=== PATIENT | female | born 1965 | race Two or more races ===

== ENCOUNTER 2024-04-20 03:04 | Emergency (ER) | payer MEDICAID, OTHER ==
[~2024-04-20] VITALS: Ht 157.5 cm; Wt 49.5 kg
[2024-04-20] MEDS: LIDOCAINE 2% TOPICAL JELLY 5 ML URJT TOP ONE (05:41)
[2024-04-20] MEDS: LIDOCAINE HCL 5 % TOP OINT 35 GM TOP ONE (05:41)
[2024-04-20] MEDS: LIDOCAINE HCL 2% TOP JELLY 5ML TOP ONE (05:41)
[2024-04-20 06:00] VITALS: BP 141/75; PULSE 86; RESP 16; O2SAT 98
[2024-04-20] MEDS ORDERED: IBU600T PO (06:06)
[2024-04-20] MEDS: TETANUS-DIPTH-ACEL PERTUSSIS 0.5ML SYR Tdap IM ONE (06:25)
== END 2024-04-20 06:26 | disposition home or self-care (01) ==
LOC: ER 03:04
DX: S01.01XA Laceration without foreign body of scalp, initial encounter (principal); Z79.899 Other long term (current) drug therapy; Y04.8XXA Assault by other bodily force, initial encounter; Y93.89 Activity, other specified; Y92.89 Other specified places as the place of occurrence of the external cause; Y99.8 Other external cause status
CPT/HCPCS: 12001; 12011; 70450; 72125; 90471; 90715

== ENCOUNTER 2024-04-29 13:28 | Emergency (ER) | payer MEDICAID ==
[~2024-04-29] VITALS: Ht 170.2 cm; Wt 55.0 kg
[~2024-04-29 13:28] MED LIST: IBU600T PO
[2024-04-29 13:44] VITALS: BP 121/74; PULSE 80; RESP 18; O2SAT 97
== END 2024-04-29 14:59 | disposition home or self-care (01) ==
LOC: ER 13:28
DX: S01.01XD Laceration without foreign body of scalp, subsequent encounter (principal); X58.XXXD Exposure to other specified factors, subsequent encounter

== ENCOUNTER 2024-08-03 04:13 | Inpatient (IN) | payer MEDICAID ==
[~2024-08-03] VITALS: Ht 152.4 cm; Wt 54.9 kg
[2024-08-03] MEDS: ONDANSETRON HCL 4 MG/2 ML VIAL IV ONE (04:39)
[2024-08-03] MEDS: levETIRAcetam 1000 mg/100ml 100 ML IV ONE (04:39)
[2024-08-03] MEDS: SODIUM CHLORIDE 0.9% 1,000 ML IV ONE (04:39)
[2024-08-03 05:01] LABS: Urine Bacteria None Seen /hpf (None Seen)
[2024-08-03] MEDS: LORazepam 2MG/ML-1ML VIAL IV ONE (05:02)
--- NOTE | 2024-08-03 05:03 | ED.PDOC ---
History of Present Illness HPI Comments 59 y/o F, with a Hx of DM w/metformin use, is BIBA for c/o seizure, today. Per EMS report, patient's spouse called after walking-in on the patient actively seizing at home, this morning. On arrival on scene, EMS staff noted on patient still actively seizing and was administered 5mg of Versed, initially, with no response until she was then given another additional 2.5mg Versed. Following second dose administration, patient commented to vomited afterwards and remained unresponsive in post-ictal stated upon arrival to ED. Patient had an initial blood glucose of 202 and all vitals stable and within rafael limits en route. Her seizure was stated to have last, approximately, 10 minutes in duration. EMS staff also reports on patient's spouse endorsing patient having a Hx of seizures in the past but has no current prescription she takes for it. Patient has no reported incontinence, trauma, or any additional reported symptoms at this time. 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 Chief Complaint: Seizure Time Seen by MD: 04:20 Reviewed Notes: Nurses Notes, Lump Maker Notes, Medications, Allergies Allergies: Coded Allergies: NO KNOWN ALLERGIES (Unverified , 04/20/24) Home Meds Active Scripts Ibuprofen Micronized (MOTRIN TABLET) 600 Mg Tb, 600 MG PO TID PRN, #40 TAB *Black box warning-NSAIDS can increase risk of IL & hypertension, GI irritation, ulceration, bleed, perferation. Do not use post cardiac surgery. Use short duration/lowest effective dose. Prov:REID MEYER MD 04/20/24 Information Source: Emergency Med Personnel Mode of Arrival: EMS Severity: Moderate Timing: Hours Duration: Minutes Prehospital treatment: 12 Lead EKG, Mill Work, Treatment (7.5mg Versed), Other (18G LAC) Review of Systems: REVIEW OF SYSTEMS: No fever, no chills, or fatigue HEENT: No sore throat, no earache, no congestion, no neck pain. Cardiac: No chest pain. No palpitations. Lungs: No shortness of breath, no cough. GI: No nausea, no vomiting, no diarrhea, no constipation, no abdominal pain : No dysuria, frequency, or urgency. No hematuria. Musculoskeletal: No joint pain , no joint swelling, no extremity edema. Skin: No rash, no itching. Neuro: Seizure, no headache, no dizziness, no weakness Vital Signs Vital Signs Date Time Temp Pulse Resp B/P (MAP) Pulse Ox O2 Delivery O2 Flow Rate FiO2 08/03/24 05:03 125 08/03/24 04:25 99.5 12 112/63 (79) 97 Physical Exam General: Nonresponsive. No acute distress. Skin: Skin in warm, dry and intact. Appropriate color for ethnicity. Nailbeds pink with no cyanosis. HEENT: The head is normocephalic and atraumatic. Conjunctivae are clear without exudates or hemorrhage. Sclera is non-icteric. Pupils pinpoint. No signs of nystagmus. Eyelids are normal in appearance without swelling or lesions. Oral mucosa is pink and moist Neck: The neck is supple with normal range of motion. No JVD. Cardiac: Heart rate and rhythm are normal. No murmurs, gallops, or rubs are auscultated. Respiratory: No signs of respiratory distress. Lung sounds are clear in all lobes bilaterally without rales, ronchi, or wheezes. Abdominal: Abdomen is soft, non-tender without distention. Bowel sounds are present and normoactive in all four quadrants. Extremities: Upper and lower extremities are atraumatic in appearance without deformity or edema. Neurological: Nonresponsive. GCS3. Psychiatric: Appropriate mood and affect. Good judgement and insight. No visual or auditory hallucinations. Past Medical History PAST MEDICAL HISTORY: DM Surgical History: Denies all surgeries WAREHOUSE PERSON History: Denies all WAREHOUSE PERSON Hx Family History Family History: Reviewed,noncontributory to illness Social History Smoker: Non-Smoker Alcohol: Denies ETOH Use Drugs: Denies Drug Use Lives In: Home Was a procedure done? Was a procedure done?: No EKG EKG : Pulse Rate (adult): 125 [place]: Normal Cardiac Rhythm: ST Block: None Hypertrophy: None ST: Normal Differential Dx Considerations may include: seizures, pseudoseizures, encephalopathy X-Ray, Labs, Meds, VS Vital Signs Date Time Temp Pulse Resp B/P (MAP) Pulse Ox O2 Delivery O2 Flow Rate FiO2 08/03/24 05:03 125 08/03/24 04:25 99.5 130 12 112/63 (79) 97 08/03/24 04:17 125 Lab Test 08/03/24 05:00 08/03/24 04:54 08/03/24 04:51 Range/Units Blood Gas Specimen Type Arterial Blood Gas Sample Site Left radial Blood Gas Patient Temperature 37.0 Arterial Blood Date Drawn [id number] Arterial Blood pH 7.442 7.350-7.450 Arterial Blood Partial Pressure CO2 31.8 L 32.0-45.0 mmHg Arterial Blood Partial Pressure O2 94.2 83.0-108.0 mmHg Arterial Blood HCO3 21.2 21.0-28.0 mmol/L Arterial Blood Oxygen Saturation 98.0 94.0-98.0 % Arterial Blood Base Excess -1.8 -2.0-3.0 mmol/L Arterial Blood Oxyhemoglobin 96.6 94.0-98.0 % Arterial Blood Carboxyhemoglobin 0.7 0.5-1.5 % Arterial Blood Methemoglobin 0.7 0.0-1.5 % Shelton Test Modified Blood Gas Total Hemoglobin 15.90 12.0-16.0 g/dL Blood Gas Liter Flow 2.00 Blood Gas Modality Nasal cannula FiO2 % 28.0 Urine Color Light-yellow Yellow Urine Clarity Clear Clear Urine pH 6.5 5.0-9.0 Urine Specific [place] 1.012 1.001-1.035 Urine Protein 1+ H Negative Urine Ketones Negative Negative Urine Blood Negative Negative /uL Urine Nitrite Negative Negative Urine Bilirubin Negative Negative Urine Urobilinogen Normal Negative mg/dL Urine Leukocyte Esterase Negative Negative /uL Urine RBC 1 0 - 4 /hpf Urine WBC <1 0 - 5 /hpf Urine Squamous Epithelial Cells Few <5 /hpf Urine Bacteria None seen None Seen /hpf Urine Hyaline Casts Few 0 - 2 /lpf Urine Glucose 2+ H Normal mg/dL Urine Opiates Screen Neg NEGATIVE Urine Fentanyl Screen Neg NEGATIVE Urine Barbiturates Screen Neg NEGATIVE Urine Phencyclidine Screen Neg NEGATIVE Urine Amphetamines Screen Neg NEGATIVE Urine Benzodiazepines Screen Pos NEGATIVE Urine Cocaine Screen Neg NEGATIVE Urine Cannabinoids Screen Neg NEGATIVE White Blood Count 12.7 H 4.4-10.8 10^3/uL Red Blood Count 4.93 4.0-5.20 10^6/uL Hemoglobin 15.4 12.2-16.2 g/dL Hematocrit 44.3 36.0-46.0 % Mean Corpuscular Volume 89.8 80.0-100.0 fL Mean Corpuscular Hemoglobin 31.3 28.0-32.0 pg Mean Corpuscular Hemoglobin Concent 34.8 32.0-36.0 g/dL Red Cell Distribution Width 12.7 11.8-14.3 % Platelet Count 208 140-450 10^3/uL Mean Platelet Volume 7.1 6.9-10.8 fL Neutrophils (%) (Auto) 89.6 H 37.0-80.0 % Lymphocytes (%) (Auto) 5.0 L 10.0-50.0 % Monocytes (%) (Auto) 4.6 0.0-12.0 % Eosinophils (%) (Auto) 0.6 0.0-7.0 % Basophils (%) (Auto) 0.2 0.0-2.0 % Neutrophils # (Auto) 11.3 H 1.6-8.6 10 ^3/uL Lymphocytes # (Auto) 0.6 0.4-5.4 10 ^3/uL Monocytes # (Auto) 0.6 0-1.3 10 ^3/uL Eosinophils # (Auto) 0.1 0-0.8 10 ^3/uL Basophils # (Auto) 0 0-0.2 10 ^3/uL Nucleated Red Blood Cells 0.0 % Sodium Level 139 136-145 mmol/L Potassium Level 3.5 3.5-5.1 mmol/L Chloride Level 104 98-107 mmol/L Carbon Dioxide Level 23 20-31 mmol/L Anion Gap 12 5-15 Blood Urea Nitrogen 14 9-23 mg/dL Creatinine 1.01 0.550-1.02 mg/dL Glomerular Filtration Rate Calc 64 >90 mL/min BUN/Creatinine Ratio 13.9 10.0-20.0 Serum Glucose 281 H 74-106 mg/dL Lactic Acid Level 6.5 *H 0.4-2.0 mmol/L Calcium Level 9.9 8.7-10.4 mg/dL Magnesium Level 1.8 1.6-2.6 mg/dL Total Bilirubin 0.6 0.2-1.0 mg/dL Aspartate Amino Transferase (AST) 27 13-40 U/L Alanine Aminotransferase (ALT) 32 7-40 U/L Alkaline Phosphatase 57 46-116 U/L Creatine Kinase Pending Total Protein 7.3 5.7-8.2 g/dL Albumin 4.5 3.2-4.8 g/dL Plasma/Serum Blood Alcohol < 3.0 <10 mg/dL Current Medications Medications (Trade) Dose Ordered Sig/Twyla Route Start Time Stop Time Status Last Admin Ondansetron HCl (Zofran) 4 mg ONCE ONCE IV 08/03/24 04:30 08/03/24 04:31 DC 08/03/24 04:39 Levetiracetam 100 ml @ 400 mls/hr ONCE ONCE IV 08/03/24 04:30 08/03/24 04:44 DC 08/03/24 04:39 Sodium Chloride 1,000 ml @ 1,000 mls/hr Q1H ONCE IV 08/03/24 04:30 08/03/24 05:29 DC 08/03/24 04:39 Lorazepam (Ativan Inj) 1 mg ONCE ONCE IV 08/03/24 05:00 08/03/24 05:01 DC 08/03/24 05:02 Time of 1ST Reevaluation: 04:50 (Patient is, now, localizing pain and has a gag-reflex; decided not to intubate) Reevaluation 1ST: Improved Patient Education/Counseling: Pt Unresponsive Family Education/Counseling: No Family Present Departure 1 Departure Time of Disposition: 06:00 Impression: Primary Impression: Seizure disorder Additional Impression: Prolonged seizure Disposition: 09 ADMITTED INPATIENT Condition: Stable Comments 59-year-old female status post 10 minute witnessed seizure by her at home. Patient is not on any anti epileptic medications however she apparently has history of repeated seizures. Patient currently sedated . Patient to be admitted for further treatment, evaluation monitoring and Neurology evaluation. Critical Care Note Critical Care Time?: No Stability Stability form required: No Heart Score Heart Score: Heart Score Response (Comments) Value History N/A 0 EKG N/A 0 Age N/A 0 Risk Factors N/A 0 Troponin N/A 0 Total 0 I personally scribed for DIRK LANTIGUA MD ([email or web address]) on 08/03/24 at 05:03. Electronically submitted by Derek Fournier ([email or web address]). DIRK LANTIGUA MD Aug 03, 2024 05:03
[2024-08-03 05:08] LABS: Basophils # (auto) 0 10 ^3/uL (0-0.2); Basophils % (auto) 0.2 % (0.0-2.0); Eosinophils # (auto) 0.1 10 ^3/uL (0-0.8); Eosinophils % (auto) 0.6 % (0.0-7.0); Hematocrit 44.3 % (36.0-46.0); Hemoglobin 15.4 g/dL (12.2-16.2); Lymphocytes # (auto) 0.6 10 ^3/uL (0.4-5.4); Mean Corpuscular Hemoglobin 31.3 pg (28.0-32.0); Mean Corpuscular Hgb Conc. 34.8 g/dL (32.0-36.0); Mean Corpuscular Volume 89.8 fL (80.0-100.0); Monocytes # (auto) 0.6 10 ^3/uL (0-1.3); Monocytes % (auto) 4.6 % (0.0-12.0); Neutrophils # (auto) 11.3 10 ^3/uL (1.6-8.6); Neutrophils % (auto) 89.6 % (37.0-80.0); Platelet Count (auto) 208 10^3/uL (140-450); Red Blood Cells 4.93 10^6/uL (4.0-5.20); Red Cell Distribution Width 12.7 % (11.8-14.3); White Blood Cell 12.7 10^3/uL (4.4-10.8)
[2024-08-03 05:20] LABS: Base Excess -1.8 mmol/L (-2.0-3.0)
[2024-08-03 05:21] LABS: Alanine Aminotransferase 32 U/L (7-40); Albumin 4.5 g/dL (3.2-4.8); Alkaline Phosphatase 57 U/L (46-116); Anion Gap 12 (5-15); Aspartate Aminotransferase 27 U/L (13-40); BUN/Creatinine Ratio 13.9 (10.0-20.0); Blood Urea Nitrogen 14 mg/dL (9-23); Calcium 9.9 mg/dL (8.7-10.4); Carbon Dioxide 23 mmol/L (20-31); Chloride 104 mmol/L (98-107); Magnesium 1.8 mg/dL (1.6-2.6); Potassium 3.5 mmol/L (3.5-5.1); Sodium 139 mmol/L (136-145)
[2024-08-03 05:22] LABS: Bilirubin, Total 0.6 mg/dL (0.2-1.0); Total Protein 7.3 g/dL (5.7-8.2)
[2024-08-03 05:29] LABS: Urine Blood Negative /uL (Negative); Urine Clarity Clear (Clear); Urine Color Light-Yellow (Yellow); Urine Hyaline Cast FEW /lpf (0 - 2); Urine Protein, UAD 1+ (Negative); Urine Specific Gravity 1.012 (1.001-1.035); Urine Squamous Epithelial Cell FEW /hpf (<5); Urine Urobilinogen Normal (Negative); Urine WBC <1 /hpf (0 - 5); Urine pH 6.5 (5.0-9.0)
[2024-08-03 05:30] LABS: Amphetamine Screen, Urine Neg (NEGATIVE); Barbiturate Scree,Urine Neg (NEGATIVE); Benzodiazephine Screen, Urine Pos (NEGATIVE); Cannabinoid Screen, Urine Neg (NEGATIVE); Cocaine Screen, Urine Neg (NEGATIVE); Opiate Scree,Urine Neg (NEGATIVE); Phencyclidine Screen, Urine Neg (NEGATIVE)
[2024-08-03 05:31] LABS: Blood Alcohol < 3.0 mg/dL (<10); Glucose 281 mg/dL (74-106)
[2024-08-03 05:33] LABS: Lactic Acid w/Reflex 6.5 mmol/L (0.4-2.0)
--- NOTE | 2024-08-03 05:33 | DVH ---
CHEST RADIOGRAPH Indication: Seizure Technique: Single frontal view of the chest was obtained Comparison: None FINDINGS: Lines and Tubes: None Lungs: No focal consolidation. Pleura: No effusion. No pneumothorax. Cardiomediastinal contours: Unremarkable Bones: No acute osseous abnormality. IMPRESSION: No acute cardiopulmonary disease.
--- NOTE | 2024-08-03 05:33 | DVH ---
EXAM: CT HEAD WITHOUT CONTRAST INDICATION: Seizure TECHNIQUE: CT of the head without intravenous contrast. Radiation Dose Information: CT Dose: CTDI volume is 50.69 mGy. Dose-length product is 812.69 mGy*cm The dose indicators for CT are the volume Computed Tomography (CT) Dose Index (CTDIvol) and the Dose Length Product (DLP), and are measured in units of mGy and mGy-cm, respectively. These indicators are not patient dose, but values generated from the CT scanner acquisition factors. The report includes radiation exposure data for exposures received during this examination. COMPARISON: CT HEAD WITHOUT CONTRAST on DOS: 04/20/24, CT CERVICAL WITHOUT CONTRAST on DOS: 04/20/24 FINDINGS: There is no evidence of acute intracranial hemorrhage, extra-axial collection, mass effect, midline s hift, herniation or hydrocephalus. The ventricles, sulci and cisterns are age appropriate. Punctate calcification posterior temporal lob e, which could be secondary to prior neurocysticercosis exposure. The crawley-white differentiation is intact. Patchy periventricular and subcortical white matter hypoattenuation is nonspecific but may be related to small vessel ischemic disease. The visualized paranasal sinuses and mastoid air cells are clear. The surrounding soft tissues and osseous structures are unremarkable. IMPRESSION: No acute intracranial abnormality.
--- NOTE | 2024-08-03 05:44 | ECG ---
[facility] Test Date: 2024-08-03 Test Time: 04:17:06 Pat Name: DARIAN FU Department: ED Room: 0222T Gender: F Clinical Sales Consultant: MEHUL : 1965 Requested By: DIRK LANTIGUA Order Number: [id number] Reading MD: Nelson Álvarez Measurements Intervals [place] Rate: 125 P: 37 [place]: 161 QRS: 14 QRSD: 91 T: 87 QT: 308 QTc: 445 Interpretive Statements Sinus tachycardia Low voltage, extremity and precordial leads Consider anterior infarct Nonspecific T abnormalities, lateral leads Baseline wander in lead(s) II,aVR,V1,V2 Electronically Signed On 08-07-2024 15:27:21 PST by Nelson Álvarez Please click the below link to view image of tracing.
[2024-08-03 06:28] VITALS: PULSE 99; RESP 14; O2SAT 98
[2024-08-03 08:00] VITALS: PULSE 83; RESP 19; O2SAT 100
[2024-08-03] MEDS ORDERED: DEXTROSE (50%) 50ML SYRG IV PRN (08:15)
[2024-08-03] MEDS ORDERED: ONDANSETRON HCL 4 MG/2 ML VIAL IV PRN (08:15)
[2024-08-03] MEDS ORDERED: ATOR10TA (08:18)
--- NOTE | 2024-08-03 08:36 | DVHHP2 ---
History of Present Illness Reason for Visit: Seizure History of Present Illness Jeannie Huitron is a 59-year-old female with past medical history of diabetes and seizures who presents to the ED for a seizure today that occurred at 3:00 a.m.. Per patient's son Tavo he reports that his dad was at home with his mother and noticed that she was twitching around 3:00 a.[address] in bed. Patient's son reports that she has not been sick recently and she is pretty active. Patient's son also reports that she has had seizures on a monthly basis and she sees a doctor but unsure if it is a neurologist. Patient's son also states that she takes multiple medications but not sure for what. At bedside patient is arousable but unable to answer questions. Patient was given Versed EN route 7.5 mg total. INCLUSION SPECIALIST: Seizure Endocrine: Diabetes Past Surgical History: Other (Unknown per son) Family History: None Smoke: No ALCOHOL: none Drugs: None Lives: with Family Domestic Violence: Neg Review of Systems Neurological: Seizures Allergies: Coded Allergies: NO KNOWN ALLERGIES (Unverified , 04/20/24) Medications Current Medications Medications Dose Ordered Sig/Twyla Route Start Time Stop Time Status Last Admin Dose Admin Diagnostic Test (Pha) 1 strip Q6HR 08/03/24 12:00 UNV Insulin Human Regular Q6HR SC 08/03/24 12:00 UNV Dextrose 50 ml UD PRN IV 08/03/24 08:15 UNV Sodium Chloride 1,000 ml @ 70 mls/hr [id number] IV 08/03/24 08:15 UNV Ondansetron HCl 4 mg Q4HP PRN IV 08/03/24 08:15 UNV Enoxaparin Sodium 30 mg DAILY SC 08/03/24 10:00 UNV Levetiracetam 100 ml @ 400 mls/hr BID IV 08/03/24 10:00 UNV Exam Vital Signs Vital Signs Date Time Temp Pulse Resp B/P (MAP) Pulse Ox O2 Delivery O2 Flow Rate FiO2 08/03/24 07:00 86 142/83 (102) 100 08/03/24 06:28 14 Nasal Cannula* 4 36 08/03/24 04:40 98.8 98.8 General Appearance: No acute distress HEENT: Atraumatic, Mucous membr. moist/pink Respiratory: Clear to auscultation, Normal air movement Cardiovascular: Regular rate, Normal S1, Normal S2, No murmurs Abdominal: Normal bowel sounds, Soft Extremities: No clubbing, No cyanosis, No edema, Normal pulses, No tenderness/swelling Skin: No significant lesion Neuro: Normal tone, Sensation intact Labs/Xrays Labs Test 08/03/24 05:00 08/03/24 04:54 08/03/24 04:51 Range/Units Blood Gas Specimen Type Arterial Blood Gas Sample Site Left radial Blood Gas Patient Temperature 37.0 Arterial Blood Date Drawn [id number] Arterial Blood pH 7.442 7.350-7.450 Arterial Blood Partial Pressure CO2 31.8 L 32.0-45.0 mmHg Arterial Blood Partial Pressure O2 94.2 83.0-108.0 mmHg Arterial Blood HCO3 21.2 21.0-28.0 mmol/L Arterial Blood Oxygen Saturation 98.0 94.0-98.0 % Arterial Blood Base Excess -1.8 -2.0-3.0 mmol/L Arterial Blood Oxyhemoglobin 96.6 94.0-98.0 % Arterial Blood Carboxyhemoglobin 0.7 0.5-1.5 % Arterial Blood Methemoglobin 0.7 0.0-1.5 % Shelton Test Modified Blood Gas Total Hemoglobin 15.90 12.0-16.0 g/dL Blood Gas Liter Flow 2.00 Blood Gas Modality Nasal cannula FiO2 % 28.0 Urine Color Light-yellow Yellow Urine Clarity Clear Clear Urine pH 6.5 5.0-9.0 Urine Specific [place] 1.012 1.001-1.035 Urine Protein 1+ H Negative Urine Ketones Negative Negative Urine Blood Negative Negative /uL Urine Nitrite Negative Negative Urine Bilirubin Negative Negative Urine Urobilinogen Normal Negative mg/dL Urine Leukocyte Esterase Negative Negative /uL Urine RBC 1 0 - 4 /hpf Urine WBC <1 0 - 5 /hpf Urine Squamous Epithelial Cells Few <5 /hpf Urine Bacteria None seen None Seen /hpf Urine Hyaline Casts Few 0 - 2 /lpf Urine Glucose 2+ H Normal mg/dL Urine Opiates Screen Neg NEGATIVE Urine Fentanyl Screen Neg NEGATIVE Urine Barbiturates Screen Neg NEGATIVE Urine Phencyclidine Screen Neg NEGATIVE Urine Amphetamines Screen Neg NEGATIVE Urine Benzodiazepines Screen Pos NEGATIVE Urine Cocaine Screen Neg NEGATIVE Urine Cannabinoids Screen Neg NEGATIVE White Blood Count 12.7 H 4.4-10.8 10^3/uL Red Blood Count 4.93 4.0-5.20 10^6/uL Hemoglobin 15.4 12.2-16.2 g/dL Hematocrit 44.3 36.0-46.0 % Mean Corpuscular Volume 89.8 80.0-100.0 fL Mean Corpuscular Hemoglobin 31.3 28.0-32.0 pg Mean Corpuscular Hemoglobin Concent 34.8 32.0-36.0 g/dL Red Cell Distribution Width 12.7 11.8-14.3 % Platelet Count 208 140-450 10^3/uL Mean Platelet Volume 7.1 6.9-10.8 fL Neutrophils (%) (Auto) 89.6 H 37.0-80.0 % Lymphocytes (%) (Auto) 5.0 L 10.0-50.0 % Monocytes (%) (Auto) 4.6 0.0-12.0 % Eosinophils (%) (Auto) 0.6 0.0-7.0 % Basophils (%) (Auto) 0.2 0.0-2.0 % Neutrophils # (Auto) 11.3 H 1.6-8.6 10 ^3/uL Lymphocytes # (Auto) 0.6 0.4-5.4 10 ^3/uL Monocytes # (Auto) 0.6 0-1.3 10 ^3/uL Eosinophils # (Auto) 0.1 0-0.8 10 ^3/uL Basophils # (Auto) 0 0-0.2 10 ^3/uL Nucleated Red Blood Cells 0.0 % Sodium Level 139 136-145 mmol/L Potassium Level 3.5 3.5-5.1 mmol/L Chloride Level 104 98-107 mmol/L Carbon Dioxide Level 23 20-31 mmol/L Anion Gap 12 5-15 Blood Urea Nitrogen 14 9-23 mg/dL Creatinine 1.01 0.550-1.02 mg/dL Glomerular Filtration Rate Calc 64 >90 mL/min BUN/Creatinine Ratio 13.9 10.0-20.0 Serum Glucose 281 H 74-106 mg/dL Lactic Acid Level 6.5 *H 0.4-2.0 mmol/L Calcium Level 9.9 8.7-10.4 mg/dL Magnesium Level 1.8 1.6-2.6 mg/dL Total Bilirubin 0.6 0.2-1.0 mg/dL Aspartate Amino Transferase (AST) 27 13-40 U/L Alanine Aminotransferase (ALT) 32 7-40 U/L Alkaline Phosphatase 57 46-116 U/L Creatine Kinase 96 34-145 U/L Total Protein 7.3 5.7-8.2 g/dL Albumin 4.5 3.2-4.8 g/dL Plasma/Serum Blood Alcohol < 3.0 <10 mg/dL EXAM: CT HEAD WITHOUT CONTRAST INDICATION: Seizure TECHNIQUE: CT of the head without intravenous contrast. Radiation Dose Information: CT Dose: CTDI volume is 50.69 mGy. Dose-length product is 812.69 mGy*cm The dose indicators for CT are the volume Computed Tomography (CT) Dose Index (CTDIvol) and the Dose Length Product (DLP), and are measured in units of mGy and mGy-cm, respectively. These indicators are not patient dose, but values generated from the CT scanner acquisition factors. The report includes radiation exposure data for exposures received during this examination. COMPARISON: CT HEAD WITHOUT CONTRAST on DOS: 04/20/24, CT CERVICAL WITHOUT CON TRAST on DOS: 04/20/24 FINDINGS: There is no evidence of acute intracranial hemorrhage, extra-axial collection, mass effect, midline shift, herniation or hydrocephalus. The ventricles, sulci and cisterns are age appropriate. Punctate calcification posterior temporal lobe, which could be secondary to prior neurocysticercosis exposure. The crawley-white differentiation is intact. Patchy periventricular and subcortical white matter hypoattenuation is nonspecific but may be related to small vessel ischemic disease. The visualized paranasal sinuses and mastoid air cells are clear. The surrounding soft tissues and osseous structures are unremarkable. IMPRESSION: No acute intracranial abnormality. CHEST RADIOGRAPH Indication: Seizure Technique: Single frontal view of the chest was obtained Comparison: None FINDINGS: Lines and Tubes: None Lungs: No focal consolidation. Pleura: No effusion. No pneumothorax. Cardiomediastinal contours: Unremarkable Bones: No acute osseous abnormality. IMPRESSION: No acute cardiopulmonary disease. Assessment/Plan Assessment/Plan Assessment/Plan: Seizure Acute encephalopathy Leukocytosis Lactic acidosis rule out sepsis Labs A.m. labs IV Keppra CT Hunt catheterization Ativan given in ED NS-1 L given in ED Antiemetics UA Blood culture CK Seizure precautions EKG ABG CT head noted Chest x-ray noted Drug screen Lactic Mag level Blood alcohol level ELECTRIC MOTOR ANALYST eval Neurology consult IV antibiotics History of diabetes uncontrolled Hemoglobin A1c ISS and Accu-Cheks FEN/PPX NPO IV fluids PUD ppx - not indicated no history of GERD or GI bleed DVT ppx - Lovenox Discussed plan of care with nurse, patient's son, and patient's sister Admit to tele Home medications reconciled Plan discussed with: Son, Other My Orders Orders - DALLIN HARDY Procedure Category Date Status Time Hemoglobin A1c LAB 08/03/24 Logged 08:12 Glucose Blood PHA 08/03/24 Logged (Accu-Chek Comfort 12:00 Insulin R (Human) PHA 08/03/24 Logged (Insulin R) 12:00 Dextrose 50% Syringe PHA 08/03/24 Logged 08:15 St Eval Swallow Funct ST 08/03/24 Logged 45min 08:12 Admit ADMIT 08/03/24 Transmitted 08:12 Allergies LAURIE 08/03/24 In Process 08:12 Code Status CODE 08/03/24 Transmitted 08:12 Sodium Chloride 0.9% PHA 08/03/24 Logged 08:15 Ondansetron Hcl PHA 08/03/24 Logged (Zofran) 08:15 Complete Blood Count LAB 08/04/24 Verified 04:00 Comprehensive LAB 08/04/24 Verified Metabolic Panel 04:00 Npo (Nothing By DIET 08/03/24 Transmitted Mouth) Diet Breakfast Enoxaparin Sodium PHA 08/03/24 Logged (Lovenox) 10:00 Seizure Precautions LAURIE 08/03/[address] 08:12 Levetiracetam 500 PHA 08/03/24 Logged Mg/100ml (Levetiraceta 10:00 Date of Service: Aug 03, 2024 Billing Provider: DALLIN HARDY Common Visit Codes: [id number] INP/OBS CARE (HIGH) DALLIN HARDY Aug 03, 2024 08:36
--- NOTE | 2024-08-03 09:24 | DVHINCON2 ---
Date of service: Aug 03, [address] Naylor Reason for Consultation Seizure History of Present Illness Ms. Huitron is a 59 years old right-handed female with a history of hypertension, diabetes, the patient was brought [facility] the [facility] on 08/[facility]/2024 with a chief company of seizure activity. At this time, she was awake, but she does not talk/vocalize, not coughed with the history, the information is obtained from her son and her , but who are not good historian Around 3:00 a.m. on 08/03/24, the patient was had event where she was nonresponsive, shaking all over body, and she was brought to the hospital. There was no biting or incontinence For about one year, almost once or twice monthly the patient was has similar event where she is nonresponsive, shaking all over body briefly, but without biting or incontinence, the patient was seen in hospitals & by doctors, and she was on a seizure medication, but the family does not remember the name and dosage, according to record, possible she is on Keppra 500 mg b.i.d. UDS, 08/03/2024: Benzo Plasma alcohol, 08/03/2024: Normal Urinalysis, 08/03/2024: WBC: 1, urine leukocyte esterase: Negative WBC/HB/PLT/MCV, 08/03/2024: 12.7/15.4/208/89.8 CMP, 08/03/2024: Unremarkable Lactic acid, 08/03/24: 6.5 CT head, 08/03/2024: No acute intracranial abnormality Past Medical History Hypertension, diabetes Past Surgical History Cholecystectomy Family History They were not aware of major medical problem Social History She was no history of tobacco smoke, alcohol or drug abuse Allergies: Coded Allergies: NO KNOWN ALLERGIES (Unverified , 04/20/24) Home Meds Active Scripts Ibuprofen Micronized (MOTRIN TABLET) 600 Mg Tb, 600 MG PO TID PRN, #40 TAB *Black box warning-NSAIDS can increase risk of DE & hypertension, GI irritation, ulceration, bleed, perferation. Do not use post cardiac surgery. Use short duration/lowest effective dose. Prov:REID MEYER MD 04/20/24 Reported Medications Atorvastatin Calcium (Lipitor) 10 Mg Tab, 10 08/03/24 Current Medications Current Medications Medications (Trade) Dose Ordered Sig/Twyla Route PRN Reason Start Time Stop Time Status Last Admin Diagnostic Test (Pha) (Accu-Chek Comfort Curve T) 1 strip Q6HR 08/03/24 12:00 Insulin Human Regular (InsuLIN R) Q6HR SC 08/03/24 12:00 Dextrose 50 ml UD PRN IV Blood Sugar LESS THAN 60 08/03/24 08:15 Sodium Chloride 1,000 ml @ 70 mls/hr [id number] IV 08/03/24 08:15 Ondansetron HCl (Zofran) 4 mg Q4HP PRN IV NAUSEA / VOMITING 08/03/24 08:15 Enoxaparin Sodium (Lovenox) 30 mg DAILY SC 08/03/24 10:00 08/03/24 09:10 DC Levetiracetam 100 ml @ 400 mls/hr BID IV 08/03/24 10:00 Enoxaparin Sodium (Lovenox) 40 mg DAILY SC 08/03/24 10:00 Ceftriaxone Sodium 50 ml @ 100 mls/hr DAILY@09 IV 08/04/24 09:00 Review of Systems As above, the other systems are negative Vital Signs Vital Signs Date Time Temp Pulse Resp B/P (MAP) Pulse Ox O2 Delivery O2 Flow Rate FiO2 08/03/24 08:39 86 134/73 (93) 99 08/03/24 08:00 99.7 19 99.7 08/03/24 08:00 Nasal Cannula* 2 28 Physical Exam GENERAL EXAM: General: the patient is well developed and nourished. No acute distress. HEENT: Normocephalic, neck is supple, no carotid bruits. No mass. RESPIRATORY: Normal respiratory effort with symmetrical lung expansion. Lungs clear to auscultation. CARDIOVASCULAR: Regular rate and rhythm with no murmurs. S1, S2. ABDOMEN: Soft, nontender, normal bowel sound NEUROLOGICAL: MENTAL STATUS: Subjective SPEECH, LANGUAGE, HIGHER CORTICAL FUNCTION: Subjective CRANIAL NERVES: #2: Intact visual shields to confrontation. #3,4,6: Pupils are equal, round and reactive. EOMs full and conjugate. #5: Facial sensation intact in all three divisions bilaterally. Mandibular strength intact. #7: Facial muscles symmetrical and strength intact. #8: Deferred. #9,10: Deferred #11: Trapezius and sternomastoid strength intact bilaterally. #12: Deferred. SENSATION: Sensation to touch and pinprick is okay. MOTOR: Normal tone in the upper and lower extremity. Normal muscle bulk. No fasciculations. No abnormal movements or posturing. She moves the arms and legs, less in the left arm REFLEXES: Deep tendon reflexes are symmetrical. No pathological reflexes. CEREBELLAR/COORDINATION: Deferred GAIT/STATION: deferred. Labs/Diagnostic Data Labs Test 08/03/24 05:00 08/03/24 04:54 08/03/24 04:51 Range/Units Blood Gas Specimen Type Arterial Blood Gas Sample Site Left radial Blood Gas Patient Temperature 37.0 Arterial Blood Date Drawn [id number] Arterial Blood pH 7.442 7.350-7.450 Arterial Blood Partial Pressure CO2 31.8 L 32.0-45.0 mmHg Arterial Blood Partial Pressure O2 94.2 83.0-108.0 mmHg Arterial Blood HCO3 21.2 21.0-28.0 mmol/L Arterial Blood Oxygen Saturation 98.0 94.0-98.0 % Arterial Blood Base Excess -1.8 -2.0-3.0 mmol/L Arterial Blood Oxyhemoglobin 96.6 94.0-98.0 % Arterial Blood Carboxyhemoglobin 0.7 0.5-1.5 % Arterial Blood Methemoglobin 0.7 0.0-1.5 % Shelton Test Modified Blood Gas Total Hemoglobin 15.90 12.0-16.0 g/dL Blood Gas Liter Flow 2.00 Blood Gas Modality Nasal cannula FiO2 % 28.0 Urine Color Light-yellow Yellow Urine Clarity Clear Clear Urine pH 6.5 5.0-9.0 Urine Specific [place] 1.012 1.001-1.035 Urine Protein 1+ H Negative Urine Ketones Negative Negative Urine Blood Negative Negative /uL Urine Nitrite Negative Negative Urine Bilirubin Negative Negative Urine Urobilinogen Normal Negative mg/dL Urine Leukocyte Esterase Negative Negative /uL Urine RBC 1 0 - 4 /hpf Urine WBC <1 0 - 5 /hpf Urine Squamous Epithelial Cells Few <5 /hpf Urine Bacteria None seen None Seen /hpf Urine Hyaline Casts Few 0 - 2 /lpf Urine Glucose 2+ H Normal mg/dL Urine Opiates Screen Neg NEGATIVE Urine Fentanyl Screen Neg NEGATIVE Urine Barbiturates Screen Neg NEGATIVE Urine Phencyclidine Screen Neg NEGATIVE Urine Amphetamines Screen Neg NEGATIVE Urine Benzodiazepines Screen Pos NEGATIVE Urine Cocaine Screen Neg NEGATIVE Urine Cannabinoids Screen Neg NEGATIVE White Blood Count 12.7 H 4.4-10.8 10^3/uL Red Blood Count 4.93 4.0-5.20 10^6/uL Hemoglobin 15.4 12.2-16.2 g/dL Hematocrit 44.3 36.0-46.0 % Mean Corpuscular Volume 89.8 80.0-100.0 fL Mean Corpuscular Hemoglobin 31.3 28.0-32.0 pg Mean Corpuscular Hemoglobin Concent 34.8 32.0-36.0 g/dL Red Cell Distribution Width 12.7 11.8-14.3 % Platelet Count 208 140-450 10^3/uL Mean Platelet Volume 7.1 6.9-10.8 fL Neutrophils (%) (Auto) 89.6 H 37.0-80.0 % Lymphocytes (%) (Auto) 5.0 L 10.0-50.0 % Monocytes (%) (Auto) 4.6 0.0-12.0 % Eosinophils (%) (Auto) 0.6 0.0-7.0 % Basophils (%) (Auto) 0.2 0.0-2.0 % Neutrophils # (Auto) 11.3 H 1.6-8.6 10 ^3/uL Lymphocytes # (Auto) 0.6 0.4-5.4 10 ^3/uL Monocytes # (Auto) 0.6 0-1.3 10 ^3/uL Eosinophils # (Auto) 0.1 0-0.8 10 ^3/uL Basophils # (Auto) 0 0-0.2 10 ^3/uL Nucleated Red Blood Cells 0.0 % Sodium Level 139 136-145 mmol/L Potassium Level 3.5 3.5-5.1 mmol/L Chloride Level 104 98-107 mmol/L Carbon Dioxide Level 23 20-31 mmol/L Anion Gap 12 5-15 Blood Urea Nitrogen 14 9-23 mg/dL Creatinine 1.01 0.550-1.02 mg/dL Glomerular Filtration Rate Calc 64 >90 mL/min BUN/Creatinine Ratio 13.9 10.0-20.0 Serum Glucose 281 H 74-106 mg/dL Lactic Acid Level 6.5 *H 0.4-2.0 mmol/L Calcium Level 9.9 8.7-10.4 mg/dL Magnesium Level 1.8 1.6-2.6 mg/dL Total Bilirubin 0.6 0.2-1.0 mg/dL Aspartate Amino Transferase (AST) 27 13-40 U/L Alanine Aminotransferase (ALT) 32 7-40 U/L Alkaline Phosphatase 57 46-116 U/L Creatine Kinase 96 34-145 U/L Total Protein 7.3 5.7-8.2 g/dL Albumin 4.5 3.2-4.8 g/dL Plasma/Serum Blood Alcohol < 3.0 <10 mg/dL Assessment General realized tonic-clonic seizure ? Left arm weakness ? John's paralysis ? Acute intracranial pathology Lactic acidosis ? Second to seizure activity ? Rule out sepsis Plan/Recommendation Monitoring Supportive treatment Telemetry EEG MR brain scan Keppra 1000 mg b.i.d. Ativan for seizure breakthrough The patient does not drive Progress: Poor This medical document was created using an electronic medical record system with [employer] computerized dictation system. Although this document has been carefully reviewed, there may still be some phonetic and typographical errors. These areas are purely typographical due to imperfections of the software programs, and do not reflect any compromise in the patient's medical care. Plan discussed with: Spouse, Son, Other EVELIO JOHNSTON MD Aug 03, 2024 09:24
[2024-08-03] MEDS: SODIUM CHLORIDE 0.9% 1,000 ML IV SCH (09:31)
[2024-08-03] MEDS: cefTRIAXone 1GM/50ML D5W 50 ML IV ONE (09:31)
[2024-08-03] MEDS ORDERED: levETIRAcetam 500 mg/100ml 100 ML IV SCH (10:00)
[2024-08-03] MEDS ORDERED: ENOXAPARIN SOD 30 MG/0.3 ML SYRINGE SC SCH (10:00)
[2024-08-03] MEDS ORDERED: LORazepam 2MG/ML-1ML VIAL IV PRN (10:45)
[2024-08-03] MEDS: ENOXAPARIN SOD 40 MG/0.4 ML SYRINGE SC SCH (11:02)
--- NOTE | 2024-08-03 11:10 | DVHPN2 ---
Reviewed: Care Plan, H&P, Labs, Medications, Previous Orders, Radiology Changes from previous H/P or p: No Changes Objective Vitals Vital Signs Date Time Temp Pulse Resp B/P (MAP) Pulse Ox O2 Delivery O2 Flow Rate FiO2 08/03/24 10:00 90 18 112/68 (83) 99 08/03/24 08:00 99.7 99.7 08/03/24 08:00 Nasal Cannula* 2 28 Intake/Output Intake and Output 08/03/24 07:00 Intake Total 1100 ml Balance 1100 ml Intake IV Total 1100 ml Medications Current Medications Medications Dose Ordered Sig/Twyla Route Start Time Stop Time Status Last Admin Dose Admin Diagnostic Test (Pha) 1 strip Q6HR 08/03/24 12:00 Insulin Human Regular Q6HR SC 08/03/24 12:00 Dextrose 50 ml UD PRN IV 08/03/24 08:15 Sodium Chloride 1,000 ml @ 70 mls/hr [id number] IV 08/03/24 08:15 08/03/24 09:31 70 MLS/HR Ondansetron HCl 4 mg Q4HP PRN IV 08/03/24 08:15 Enoxaparin Sodium 40 mg DAILY SC 08/03/24 10:00 08/03/24 11:02 40 MG Ceftriaxone Sodium 50 ml @ 100 mls/hr DAILY@09 IV 08/04/24 09:00 Levetiracetam 100 ml @ 400 mls/hr BID IV 08/03/24 22:00 Lorazepam 1 mg Q5MINP PRN IV 08/03/24 10:45 Lorazepam 1 mg ONCE PRN IV 08/03/24 10:45 Laboratory Results Laboratory Tests 08/03/24 04:51 Chemistry Test 08/03/24 04:51 Albumin 4.5 g/dL (3.2-4.8) Calcium Level 9.9 mg/dL (8.7-10.4) Magnesium Level 1.8 mg/dL (1.6-2.6) Total Protein 7.3 g/dL (5.7-8.2) LFT Test 08/03/24 04:51 Alanine Aminotransferase (ALT) 32 U/L (7-40) Alkaline Phosphatase 57 U/L (46-116) Aspartate Amino Transferase (AST) 27 U/L (13-40) Total Bilirubin 0.6 mg/dL (0.2-1.0) HgA1c, TSH Test 08/03/24 04:51 Hemoglobin A1c 6.5 % A1C (<5.7) H Urinalysis Test 08/03/24 04:54 Urine Color Light-yellow (Yellow) Urine Clarity Clear (Clear) Urine pH 6.5 (5.0-9.0) Urine Specific [place] 1.012 (1.001-1.035) Urine Protein 1+ (Negative) H Urine Ketones Negative (Negative) Urine Blood Negative /uL (Negative) Urine Nitrite Negative (Negative) Urine Bilirubin Negative (Negative) Urine Urobilinogen Normal mg/dL (Negative) Urine Leukocyte Esterase Negative /uL (Negative) Urine RBC 1 /hpf (0 - 4) Urine WBC <1 /hpf (0 - 5) Urine Squamous Epithelial Cells Few /hpf (<5) Urine Bacteria None seen /hpf (None Seen) Urine Hyaline Casts Few /lpf (0 - 2) Urine Glucose 2+ mg/dL (Normal) H Blood Gas Results Test 08/03/24 05:00 Arterial Blood pH 7.442 (7.350-7.450) FiO2 % 28.0 Labs and/or images reviewed: Labs reviewed by me, Image(s) reviewed by me Assessment/Plan Assessment/Plan Generalized tonic-clonic seizures: Consult by Guillermo Quinones p.rShantenShante Left arm weakness possible John's paralysis: Breakthrough seizures Ruled out sepsis Plan discussed with: Patient Date of Service: Aug 03, 2024 Billing Provider: CRISTOFER JEFFERS MD Common Visit Codes: [id number] INP/OBS CARE(HIGH) CRISTOFER JEFFERS MD Aug 03, 2024 11:10
[2024-08-03] MEDS: LORazepam 2MG/ML-1ML VIAL IV PRN (12:01)
[2024-08-03] MEDS: ACCU-CHEK COMFORT CURVE STRIP VI SCH (12:44)
[2024-08-03] MEDS: InsuLIN REG 1unit/0.01ml Soln (100units/ml) SC SCH (12:46)
--- NOTE | 2024-08-03 12:59 | DVH ---
PROCEDURE: MRI BRAIN HEAD WO CONTRAST INDICATION: Sz EXAM DATE: 08/03/2024 12:04 PM COMPARISON: None TECHNIQUE: MRI of the brain without intravenous contrast. Only diffusion-weighted, axial T2 weighted , and axial GRE images were submitted. FINDINGS: Diffusion weighted images of the brain demonstrate no evidence of acute infarction. There is no evidence of acute intracranial hemorrhage, extra-axial collection, mass effect, midline s hift, herniation or hydrocephalus. The ventricles, sulci and cisterns appear age appropriate. The signal intensities of the brain parenchyma are within normal limits. There are no signal abnormalities on the susceptibility weighted sequences. The major vascular flow voids are present. The visualized paranasal sinuses and mastoid air cells are clear. The surrounding soft tissues and o sseous structures are unremarkable. IMPRESSION: 1. Limited, incomplete exam. No evidence of acute infarction, intracranial hemorrhage, mass effect or hydrocephalus. HS:Y
--- NOTE | 2024-08-03 22:09 | DVHEEG2 ---
Neurology EEG Procedural Note Procedural Note EXAM DATE: 08/03/2024 REFERRING DOCTOR: Dr. Johnston TECHNIQUE: Eighteen channels of EEG, 2 channels of EOG, and 1 channel of EKG were recorded using the International 10/20 system. CLINICAL DATA: The patient was referred for an EEG evaluation for the evidence of seizure disorder. MEDICATIONS: See chart BACKGROUND ACTIVITY: There was significant amount of movement and electrode artifacts in the recording, likely the EEG showed diffuse theta slowing. 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
[2024-08-03 22:58] VITALS: BP 115/56; PULSE 63; RESP 20; TEMP 97.9; O2SAT 97
[2024-08-04] MEDS: levETIRAcetam 1000 mg/100ml 100 ML IV SCH (00:20)
[2024-08-04 01:00] VITALS: BP 106/56; PULSE 65; RESP 20; TEMP 97.2; O2SAT 95
[2024-08-04 05:00] VITALS: BP 96/52; PULSE 60; RESP 20; TEMP 98; O2SAT 95
[2024-08-04 08:00] VITALS: PULSE 62; RESP 20; O2SAT 94
[2024-08-04 08:07] LABS: Basophils # (auto) 0 10 ^3/uL (0-0.2); Basophils % (auto) 0.2 % (0.0-2.0); Eosinophils # (auto) 0.3 10 ^3/uL (0-0.8); Eosinophils % (auto) 3.6 % (0.0-7.0); Hematocrit 40.1 % (36.0-46.0); Lymphocytes # (auto) 1.9 10 ^3/uL (0.4-5.4); Mean Corpuscular Hemoglobin 31.6 pg (28.0-32.0); Mean Corpuscular Volume 90.4 fL (80.0-100.0); Monocytes # (auto) 0.6 10 ^3/uL (0-1.3); Monocytes % (auto) 8.7 % (0.0-12.0); Neutrophils # (auto) 4.2 10 ^3/uL (1.6-8.6); Neutrophils % (auto) 60.5 % (37.0-80.0); Nucleated Red Blood Cells % 0.2 %; Platelet Count (auto) 174 10^3/uL (140-450); Red Blood Cells 4.44 10^6/uL (4.0-5.20); Red Cell Distribution Width 12.7 % (11.8-14.3); White Blood Cell 6.9 10^3/uL (4.4-10.8)
[2024-08-04] MEDS ORDERED: LEVO500T91 PO (08:25)
--- NOTE | 2024-08-04 08:25 | DVHPN2 ---
Reviewed: Care Plan, H&P, Labs, Medications, Previous Orders, Radiology Changes from previous H/P or p: No Changes Objective Vitals Vital Signs Date Time Temp Pulse Resp B/P (MAP) Pulse Ox O2 Delivery O2 Flow Rate FiO2 08/04/24 05:00 98.0 60 20 96/52 (67) 95 98.0 08/03/24 22:58 Room Air* 0 21 Intake/Output Intake and Output 08/04/24 06:59 Intake Total 750 ml Output Total 2075 ml Balance -1325 ml Intake IV Total 750 ml Output Urine Total 2075 ml Medications Current Medications Medications Dose Ordered Sig/Twyla Route Start Time Stop Time Status Last Admin Dose Admin Diagnostic Test (Pha) 1 strip Q6HR 08/03/24 12:00 08/04/24 06:28 1 STRIP Insulin Human Regular Q6HR SC 08/03/24 12:00 08/03/24 23:02 4 UNITS Dextrose 50 ml UD PRN IV 08/03/24 08:15 Sodium Chloride 1,000 ml @ 70 mls/hr [id number] IV 08/03/24 08:15 08/03/24 23:06 70 MLS/HR Ondansetron HCl 4 mg Q4HP PRN IV 08/03/24 08:15 Enoxaparin Sodium 40 mg DAILY SC 08/03/24 10:00 08/03/24 11:02 40 MG Ceftriaxone Sodium 50 ml @ 100 mls/hr DAILY@09 IV 08/04/24 09:00 Levetiracetam 100 ml @ 400 mls/hr BID IV 08/03/24 22:00 08/04/24 00:20 400 MLS/HR Lorazepam 1 mg Q5MINP PRN IV 08/03/24 10:45 Lorazepam 1 mg ONCE PRN IV 08/03/24 10:45 08/03/24 12:01 1 MG Laboratory Results Laboratory Tests 08/04/24 06:20 Chemistry Test 08/04/24 06:20 Albumin Pending Calcium Level Pending Total Protein Pending LFT Test 08/04/24 06:20 Alanine Aminotransferase (ALT) Pending Alkaline Phosphatase Pending Aspartate Amino Transferase (AST) Pending Total Bilirubin Pending Urinalysis Test 08/03/24 04:54 Urine Color Light-yellow (Yellow) Urine Clarity Clear (Clear) Urine pH 6.5 (5.0-9.0) Urine Specific [place] 1.012 (1.001-1.035) Urine Protein 1+ (Negative) H Urine Ketones Negative (Negative) Urine Blood Negative /uL (Negative) Urine Nitrite Negative (Negative) Urine Bilirubin Negative (Negative) Urine Urobilinogen Normal mg/dL (Negative) Urine Leukocyte Esterase Negative /uL (Negative) Urine RBC 1 /hpf (0 - 4) Urine WBC <1 /hpf (0 - 5) Urine Squamous Epithelial Cells Few /hpf (<5) Urine Bacteria None seen /hpf (None Seen) Urine Hyaline Casts Few /lpf (0 - 2) Urine Glucose 2+ mg/dL (Normal) H Labs and/or images reviewed: Labs reviewed by me, Image(s) reviewed by me Assessment/Plan Assessment/Plan Generalized tonic-clonic seizures: Consult by Guillermo Quinones p.r.n., CT head negative MRI brain negative EEG mildly abnormal Left arm weakness possible John's paralysis: Breakthrough seizures Ruled out sepsis Rocephin Medication noncompliance Patient examined through the math interventionist She Is alert awake oriented x3 and ambulating and wants to go home Plan discussed with: Patient Date of Service: Aug 04, 2024 Billing Provider: CRISTOFER JEFFERS MD Common Visit Codes: [id number] INP/OBS CARE(HIGH) CRISTOFER JEFFERS MD Aug 04, 2024 08:25
[2024-08-04 08:29] LABS: Alanine Aminotransferase 24 U/L (7-40); Albumin 3.8 g/dL (3.2-4.8); Anion Gap 6 (5-15); Aspartate Aminotransferase 29 U/L (13-40); BUN/Creatinine Ratio 17.9 (10.0-20.0); Blood Urea Nitrogen 12 mg/dL (9-23); Calcium 9.2 mg/dL (8.7-10.4); Carbon Dioxide 27 mmol/L (20-31); Sodium 142 mmol/L (136-145)
--- NOTE | 2024-08-04 08:29 | DVHDS2 ---
Discharge Summary Date of Admission Aug 03, 2024 at 08:12 Date of Discharge: Aug 04, 2024 Admitting Diagnosis BREAKTHROUGH SEIZURES Wounds: None Labs/Diagnostic Data: Laboratory Results Test 08/04/24 06:20 08/04/24 05:38 08/03/24 11:10 08/03/24 05:00 White Blood Count 6.9 10^3/uL (4.4-10.8) Red Blood Count 4.44 10^6/uL (4.0-5.20) Hemoglobin 14.0 g/dL (12.2-16.2) Hematocrit 40.1 % (36.0-46.0) Mean Corpuscular Volume 90.4 fL (80.0-100.0) Mean Corpuscular Hemoglobin 31.6 pg (28.0-32.0) Mean Corpuscular Hemoglobin Concent 35.0 g/dL (32.0-36.0) Red Cell Distribution Width 12.7 % (11.8-14.3) Platelet Count 174 10^3/uL (140-450) Mean Platelet Volume 7.5 fL (6.9-10.8) Neutrophils (%) (Auto) 60.5 % (37.0-80.0) Lymphocytes (%) (Auto) 27.0 % (10.0-50.0) Monocytes (%) (Auto) 8.7 % (0.0-12.0) Eosinophils (%) (Auto) 3.6 % (0.0-7.0) Basophils (%) (Auto) 0.2 % (0.0-2.0) Neutrophils # (Auto) 4.2 10 ^3/uL (1.6-8.6) Lymphocytes # (Auto) 1.9 10 ^3/uL (0.4-5.4) Monocytes # (Auto) 0.6 10 ^3/uL (0-1.3) Eosinophils # (Auto) 0.3 10 ^3/uL (0-0.8) Basophils # (Auto) 0 10 ^3/uL (0-0.2) Nucleated Red Blood Cells 0.2 % POC Glucose 118 mg/dl (70-106) Lactic Acid Level 2.3 mmol/L (0.4-2.0) Blood Gas Specimen Type Arterial Blood Gas Sample Site Left radial Blood Gas Patient Temperature 37.0 Arterial Blood Date Drawn [id number] Arterial Blood pH 7.442 (7.350-7.450) Arterial Blood Partial Pressure CO2 31.8 mmHg (32.0-45.0) Arterial Blood Partial Pressure O2 94.2 mmHg (83.0-108.0) Arterial Blood HCO3 21.2 mmol/L (21.0-28.0) Arterial Blood Oxygen Saturation 98.0 % (94.0-98.0) Arterial Blood Base Excess -1.8 mmol/L (-2.0-3.0) Arterial Blood Oxyhemoglobin 96.6 % (94.0-98.0) Arterial Blood Carboxyhemoglobin 0.7 % (0.5-1.5) Arterial Blood Methemoglobin 0.7 % (0.0-1.5) Shelton Test Modified Blood Gas Total Hemoglobin 15.90 g/dL (12.0-16.0) Blood Gas Liter Flow 2.00 Blood Gas Modality Nasal cannula FiO2 % 28.0 Test 08/03/24 04:54 08/03/24 04:51 Urine Color Light-yellow (Yellow) Urine Clarity Clear (Clear) Urine pH 6.5 (5.0-9.0) Urine Specific [place] 1.012 (1.001-1.035) Urine Protein 1+ (Negative) Urine Ketones Negative (Negative) Urine Blood Negative /uL (Negative) Urine Nitrite Negative (Negative) Urine Bilirubin Negative (Negative) Urine Urobilinogen Normal mg/dL (Negative) Urine Leukocyte Esterase Negative /uL (Negative) Urine RBC 1 /hpf (0 - 4) Urine WBC <1 /hpf (0 - 5) Urine Squamous Epithelial Cells Few /hpf (<5) Urine Bacteria None seen /hpf (None Seen) Urine Hyaline Casts Few /lpf (0 - 2) Urine Glucose 2+ mg/dL (Normal) Urine Opiates Screen Neg (NEGATIVE) Urine Fentanyl Screen Neg (NEGATIVE) Urine Barbiturates Screen Neg (NEGATIVE) Urine Phencyclidine Screen Neg (NEGATIVE) Urine Amphetamines Screen Neg (NEGATIVE) Urine Benzodiazepines Screen Pos (NEGATIVE) Urine Cocaine Screen Neg (NEGATIVE) Urine Cannabinoids Screen Neg (NEGATIVE) Hemoglobin A1c 6.5 % A1C (<5.7) Magnesium Level 1.8 mg/dL (1.6-2.6) Creatine Kinase 96 U/L (34-145) Plasma/Serum Blood Alcohol < 3.0 mg/dL (<10) Other Laboratory Tests 08/04/24 06:20 Brief Hx & Hospital Course: 59-year-old female with a history of seizures noncompliant brought in for tonic- clonic seizures admitted to the hospital. Treated by Kevamsi and Ativan p.r.n. seen by Neurology Dr. Qiu. CT head negative MRI brain negative EEG mildly abnormal mild left arm weakness which has been resolved patient feels better alert awake and oriented x3 and ambulating. Being discharged home on Levaquin for mild elevated leukocytes. 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 Consults/Reason for consult Neurology Dr. Qiu Operations or Procedures CT head MRI brain EEG Condition at Discharge: Fair Final Diagnosis/Problems List Generalized tonic-clonic seizures: Consult by Dr. Qiu appreciated Yumi, Ativan p.r.n., CT head negative MRI brain negative EEG mildly abnormal Left arm weakness possible John's paralysis: Breakthrough seizures Ruled out sepsis Rocephin Medication noncompliance Discharge Disposition: Home Discharge Instruct/Medications Diet: Regular Activity: Light activity Follow Up/Referral: Follow up with your primary Dr Continue all your previous home medications Medications: Levaquin Transmitted to the pharmacy 35 (Time taken for discharge summary 35 minuteS) Discharge Statement: "Patient was advised to return to the ER or call 911 if any headaches, dizziness, shortness of breath, chest pain, abdominal pain, bleeding, fevers, or worsening of medical condition. Patient was counseled about treatment plan, medications, possible side effects, patientverbalized understanding. All questions were answered to the best of my ability. This discharge took greater then 30 minutes in planning, reviewing documentation, counseling the patient, and discussing with other team members." ASSESSMENT ASSESSMENT Hospital Course Improved Assessment Generalized tonic-clonic seizures: Consult by Dr. Qiu appreciated Yumi, Ativan p.r.n., CT head negative MRI brain negative EEG mildly abnormal Left arm weakness possible John's paralysis: Breakthrough seizures Ruled out sepsis Rocephin Medication noncompliance Date of Service: Aug 04, 2024 Billing Provider: CRISTOFER JEFFERS MD Common Visit Codes: [id number] DISCH DAY >30min CRISTOFER JEFFERS MD Aug 04, 2024 08:29
[2024-08-04 08:32] LABS: Alkaline Phosphatase 43 U/L (46-116); Chloride 109 mmol/L (98-107); Glucose 114 mg/dL (74-106); Potassium 3.4 mmol/L (3.5-5.1)
[2024-08-04 09:00] VITALS: BP 103/56; PULSE 62; RESP 20; TEMP 97.3; O2SAT 94
[2024-08-04] MEDS ORDERED: cefTRIAXone 1GM/50ML D5W 50 ML IV SCH (09:00)
[2024-08-04 10:51] VITALS: BP 103/56; PULSE 62; RESP 20; TEMP 97.3; O2SAT 94
== END 2024-08-04 11:49 | disposition home or self-care (01) | DRG 53 ==
LOC: ER 04:13 → EDBD 04:13 → EDUNIT# 04:13 → TELE 08:12 → TELE-CENTR 21:35
PROVIDERS: ADMIT Family Medicine; ATTEND Family Medicine
DX: G40.409 Other generalized epilepsy and epileptic syndromes, not intractable, without status epilepticus (principal); E87.20 Acidosis, unspecified; G83.84 Todd's paralysis (postepileptic); E11.9 Type 2 diabetes mellitus without complications; D72.829 Elevated white blood cell count, unspecified; I10 Essential (primary) hypertension; Z79.899 Other long term (current) drug therapy; Z90.49 Acquired absence of other specified parts of digestive tract; Z91.199 Patient's noncompliance with other medical treatment and regimen due to unspecified reason; Z79.4 Long term (current) use of insulin
CPT/HCPCS: 36415; 36600; 70450; 70551; 71045; 80053; 80307; 80320; 81001; 82550; 82805; 82962; 83036; 83605; 83735; 85025; 87040; 92610; 93005; 95819; G0378; J1815; J2405

== ENCOUNTER 2025-03-15 04:48 | Inpatient (IN) | payer MEDICAID ==
[~2025-03-15] VITALS: Ht 147.3 cm; Wt 52.3 kg
[~2025-03-15 04:48] MED LIST changes: +ATOR10TA; +LEVO500T91 PO
[2025-03-15 05:14] VITALS: PULSE 94; RESP 18; O2SAT 98
[2025-03-15] MEDS: LORazepam 2MG/ML-1ML VIAL IV STA (06:20)
[2025-03-15] MEDS: HALOPERIDOL LACTATE 5 MG/ML INJ VIAL IM ONE (06:23)
[2025-03-15] MEDS: diphenhdrAMINE HCL 50 MG/1 ML VL IV ONE (06:28)
--- NOTE | 2025-03-15 06:39 | ED.PDOC ---
Altered Mental Status HPI Comments 59 y/o F is BIBA for AMS s/p seizure. Per EMS report, patient is reported to have had a seizure episode at home. Versed was given on scene and en route by EMS personnel. Upon arrival to ED, patient is awake but is uncooperative and aggressive with ED staff. Further history is limited, due to patient's condition. Chief Complaint: Seizure Time Seen by MD: 06:15 Allergies: Coded Allergies: NO KNOWN ALLERGIES (Unverified , 04/20/24) Home Meds Active Scripts Levofloxacin Hemihydrate (LEVAQUIN 500 MG) 500 Mg Tab, 1 TAB PO DAILY, #7 TAB Prov:CRISTOFER JEFFERS MD 08/04/24 Ibuprofen Micronized (MOTRIN TABLET) 600 Mg Tb, 600 MG PO TID PRN, #40 TAB *Black box warning-NSAIDS can increase risk of [place] & hypertension, GI irritation, ulceration, bleed, perferation. Do not use post cardiac surgery. Use short duration/lowest effective dose. 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: Denies all PATIENT SERVICE REPRESENTATIVE Hx Family History Family History: Reviewed,noncontributory to illness Social History Smoker: Non-Smoker Alcohol: Denies ETOH Use Drugs: Denies Drug Use Lives In: Home All Other Systems: Reviewed and Negative (Comprehensive systems review obtained and negative except for what is stated in the HPI.) Physical Exam General Appearance: Moderate Distress HEENT: Normal ENT Inspection, Pharynx Normal, TMs Normal Neck: Full Range of Motion, Non-Tender, Normal, Normal Inspection Respiratory: Chest Non-Tender, Lungs Clear, No Accessory Muscle Use, No Respiratory Distress, Normal Breath Sounds Cardiovascular: No Edema, No JVD, No Murmur, No Gallop, Normal Peripheral Pulses, Regular Rate/Rhythm Breast Exam: Deferred Gastrointestinal: No Organomegaly, Non Tender, No Pulsatile Mass, Normal Bowel Sounds, Soft Genitalia: Deferred Pelvic: Deferred Rectal: Deferred Extremities: No calf tenderness, No pedal edema Musculoskeletal : Apperance: Normal Neurologic: Disoriented, No Motor Deficits, No Sensory Deficits Cerebellar Function: NOT DONE Reflexes: NOT DONE Skin: Normal Color Peripheral Pulses: 3+ Radial (R), 3+ Radial (L) Lymphatic: No Adenopathy Was a procedure done? Was a procedure done?: No Differential Diagnosis (ALOC) Differential Diagnosis: Dehydration, Hypoglycemia, DKA, Encephalopathy, Seizure, Closed Head Injury, Drug Overdose, ETOH Intoxication X-Ray, Labs, Meds, VS Vital Signs Date Time Temp Pulse Resp B/P (MAP) Pulse Ox O2 Delivery O2 Flow Rate FiO2 03/15/25 05:14 94 18 98 Nasal Cannula* 2 28 03/15/25 05:14 98.1 93 20 130/75 (93) 98 98.1 03/15/25 05:04 97.2 103 15 152/66 95 97.2 Lab Test 03/15/25 07:15 Range/Units White Blood Count 9.5 4.4-10.8 10^3/uL Red Blood Count 4.82 4.0-5.20 10^6/uL Hemoglobin 15.5 12.2-16.2 g/dL Hematocrit 42.5 36.0-46.0 % Mean Corpuscular Volume 88.3 80.0-100.0 fL Mean Corpuscular Hemoglobin 32.3 H 28.0-32.0 pg Mean Corpuscular Hemoglobin Concent 36.5 H 32.0-36.0 g/dL Red Cell Distribution Width 12.8 11.8-14.3 % Platelet Count 221 140-450 10^3/uL Mean Platelet Volume 7.2 6.9-10.8 fL Neutrophils (%) (Auto) 37.0-80.0 % Lymphocytes (%) (Auto) 10.0-50.0 % Monocytes (%) (Auto) 0.0-12.0 % Basophils (%) (Auto) 0.0-2.0 % Neutrophils # (Auto) 1.6-8.6 10 ^3/uL Lymphocytes # (Auto) 0.4-5.4 10 ^3/uL Monocytes # (Auto) 0-1.3 10 ^3/uL Differential Total Cells Counted Pending Neutrophils % (Manual) Pending Band Neutrophils % (Manual) Pending Lymphocytes % (Manual) Pending Monocytes % (Manual) Pending Eosinophils % (Manual) Pending Basophils % (Manual) Pending Metamyelocytes % (manual) Pending Myelocytes % (Manual) Pending Promyelocytes % (Manual) Pending Blast Cells % (Manual) Pending Reactive Lymphocytes Pending Platelet Estimate Pending Sodium Level Pending Potassium Level Pending Chloride Level Pending Carbon Dioxide Level Pending Anion Gap Pending Blood Urea Nitrogen Pending Creatinine Pending Glomerular Filtration Rate Calc Pending BUN/Creatinine Ratio Pending Serum Glucose Pending Calcium Level Pending Troponin I High Sensitivity Pending Current Medications Medications (Trade) Dose Ordered Sig/Twyla Route Start Time Stop Time Status Last Admin Lorazepam (Ativan Inj) 2 mg ONCE STAT IV 03/15/25 06:16 03/15/25 06:17 DC 03/15/25 06:20 Diphenhydramine HCl (Benadryl Injection) 50 mg ONCE ONCE IV 03/15/25 06:30 03/15/25 06:31 DC 03/15/25 06:28 Haloperidol Lactate (Haldol) 10 mg ONCE ONCE IM 03/15/25 06:30 03/15/25 06:31 DC 03/15/25 06:23 Levetiracetam 100 ml @ 400 mls/hr ONCE ONCE IV 03/15/25 07:15 03/15/25 07:29 DC 03/15/25 07:19 [place] [id number] Ph: [phone] DIAGNOSTIC IMAGING Diagnostic Imaging Report : [id number] Signed PATIENT: DARIAN FU ACCT: [id number] UNIT: [id number] : 1965 LOC: ER ROOM / BED: / AGE / SEX: 59 / F ADM STATUS: REG ER SERVICE 0635 ORDERING PHYSICIAN: ABDOUL RBIGHT MD PROCEDURE(s): HWOCT - HEAD WITHOUT CONTRAST REASON: seizure ORDER NUMBER(s): [id number], ACCESSION NUMBER(s): [id number] EXAM: CT HEAD WITHOUT CONTRAST INDICATION: Seizure TECHNIQUE: CT of the head without intravenous contrast. Coronal and sagittal reformatted images are submitted. Radiation Dose : 1. Head: CT Dose: CTDI volume is 50.7 mGy. Dose-length product is 810.97 mGy*cm The dose indicators for CT are the volume Computed Tomography (CT) Dose Index (CTDIvol) and the Dose Length Product (DLP), and are measured in units of mGy and mGy-cm, respectively. These indicators are not patient dose, but values generated from the CT scanner acquisition factors. The report includes radiation exposure data for exposures received during this examination. All CT scans at this medical facility are performed using dose modulation techniques as appropriate to a performed exam including the following: Automated exposure control was utilized; adjustment of the MA and/or KV according to patient size; and use of iterative reconstruction technique. COMPARISON: MRI BRAIN HEAD WO CONTRAST on DOS: 08/03/24, CT HEAD WITHOUT CONTRAST on DOS: 08/03/24. FINDINGS: There is no evidence of acute intracranial hemorrhage, extra-axial collection, mass effect, midline shift, herniation or hydrocephalus. The ventricles, sulci and cisterns are age appropriate. The crawley-white differentiation is intact. The visualized paranasal sinuses and mastoid air cells are clear. No depressed calvarial fracture. The surrounding soft tissues are unremarkable. IMPRESSION: 1. No evidence of acute intracranial abnormality. ATED BY: NORMAN GARCIA MD DICTATED DATE/TIME: 03/15/25716 SIGNED BY: NORMAN GARCIA MD SIGNED DATE/TIME: 03/15/25716 CC: [place] [id number] Ph: [phone] DIAGNOSTIC IMAGING Diagnostic Imaging Report : [id number] Signed PATIENT: DARIAN FU ACCT: [id number] UNIT: [id number] : 1965 LOC: ER ROOM / BED: / AGE / SEX: 59 / F ADM STATUS: REG ER SERVICE 4 ORDERING PHYSICIAN: ABDOUL BRIGHT MD PROCEDURE(s): CXRP - CHEST PORTABLE REASON: sob ORDER NUMBER(s): [id number], ACCESSION NUMBER(s): [id number] INDICATION: sob TECHNIQUE: Frontal view of the chest. COMPARISON: XY CHEST XRAY 1 VIEW on DOS: 08/03/24 FINDINGS: . The heart and mediastinal contours are grossly unremarkable. There is no evidence of pleural disease. The lungs are clear. The bony structures of the chest are intact without fracture. IMPRESSION: 1. No evidence of acute disease. ATED BY: JADIEL LOPEZ MD DICTATED DATE/TIME: 03/15/25720 SIGNED BY: JADIEL LOPEZ MD SIGNED DATE/TIME: 03/15/25720 CC: Patient altered. Vitals stable. Could not get a good history. Blood pressure within normal limits. Unable to control her. Aggressive. Was given Haldol. Was given Ativan. Was given Benadryl. Establish intravenous access. Was given fluids. Unknown whether she is taking her seizure medication. She was given Keppra. Continue monitoring. Time of 1ST Reevaluation: 06:45 Reevaluation 1ST: Unchanged Patient Education/Counseling: Other Family Education/Counseling: No Family Present SEPSIS Sepsis Screen Date sepsis recognized/suspect: Mar 15, 2025 Time Sepsis recognized/suspect: 516 Recent Procedure: No On Antibiotic Therapy: No Respiratory Rate >20: No Heart Rate >90: No Temp<36 C (96.8 F) or >38.3 C: No SBP <90 or MAP <65 mmHG: No New Acute Mental Status Change: No Is the patient on CPAP, BIPAP,: No Physician Orders Head Without Contrast (03/15/25 06:35) Troponin-I Hs (03/15/25 06:35) Complete Blood Count (03/15/25 06:35) Chest Portable (03/15/25 06:35) Urinalysis (03/15/25 06:35) Basic Metabolic Panel (03/15/25 06:35) Sodium Chloride 0.9% (03/15/25 06:45) Manual Differential (03/15/25 07:15) Vital Signs Date Time Temp Pulse Resp B/P (MAP) Pulse Ox O2 Delivery O2 Flow Rate FiO2 03/15/25 05:14 94 18 98 Nasal Cannula* 2 28 03/15/25 05:14 98.1 93 20 130/75 (93) 98 98.1 03/15/25 05:04 97.2 103 15 152/66 95 97.2 Laboratory Tests Test 03/15/25 07:15 White Blood Count 9.5 10^3/uL (4.4-10.8) Medications Medications Dose Ordered Sig/Twyla Route Start Time Stop Time Status Last Admin Dose Admin Diphenhydramine HCl 50 mg ONCE ONCE IV 03/15/25 06:30 03/15/25 06:31 DC 03/15/25 06:28 Haloperidol Lactate 10 mg ONCE ONCE IM 03/15/25 06:30 03/15/25 06:31 DC 03/15/25 06:23 Levetiracetam 100 ml @ 400 mls/hr ONCE ONCE IV 03/15/25 07:15 03/15/25 07:29 DC 03/15/25 07:19 Lorazepam 2 mg ONCE STAT IV 03/15/25 06:16 03/15/25 06:17 DC 03/15/25 06:20 Departure 1 Departure Time of Disposition: 07:05 Impression: Primary Impression: Metabolic encephalopathy Additional Impression: Seizure disorder Disposition: ADMITTED INPATIENT Admit to: Med Surg Condition: Guarded Critical Care Note Critical Care Time?: Yes (90 min-critical care time only) Stability Stability form required: No Heart Score Heart Score: Heart Score Response (Comments) Value History N/A 0 EKG N/A 0 Age N/A 0 Risk Factors N/A 0 Troponin N/A 0 Total 0 I personally scribed for ABDOUL BRIGHT MD ([email or web address]) on 03/15/25 at 06:39. Electronically submitted by Derek Fournier ([email or web address]). I personally scribed for ABDOUL BRIGHT MD ([email or web address]) on 03/15/25 at 07:51. Electronically submitted by Derek Fournier ([email or web address]). ABDOUL BRIGHT MD Mar 15, 2025 06:39
[2025-03-15] MEDS: SODIUM CHLORIDE 0.9% 1,000 ML IV ONE ×2 (06:45)
[2025-03-15 07:07] VITALS: PULSE 116; RESP 18; O2SAT 97
[2025-03-15] MEDS: levETIRAcetam 1000 mg/100ml 100 ML IV ONE ×2 (07:19→18:17)
--- NOTE | 2025-03-15 07:20 | DVH ---
EXAM: CT HEAD WITHOUT CONTRAST INDICATION: Seizure TECHNIQUE: CT of the head without intravenous contrast. Coronal and sagittal reformatted images are s ubmitted. Radiation Dose : 1. Head: CT Dose: CTDI volume is 50.7 mGy. Dose-length product is 810.97 mGy*cm The dose indicators for CT are the volume Computed Tomography (CT) Dose Index (CTDIvol) and the Dose Length Product (DLP), and are measured in units of mGy and mGy-cm, respectively. These indicators are not patient dose, but values generated from the CT scanner acquisition factors. The report includes radiation exposure data for exposures received during this examination. All CT scans at this medical facility are performed using dose modulation techniques as appropriate to a performed exam including the following: Automated exposure control was utilized; adjustment of the MA and/or KV according to patient size; and use of iterative reconstruction technique. COMPARISON: MRI BRAIN HEAD WO CONTRAST on DOS: 08/03/24, CT HEAD WITHOUT CONTRAST on DOS: 08/03/24. FINDINGS: There is no evidence of acute intracranial hemorrhage, extra-axial collection, mass effect, midline s hift, herniation or hydrocephalus. The ventricles, sulci and cisterns are age appropriate. The crawley-white differentiation is intact. The visualized paranasal sinuses and mastoid air cells are clear. No depressed calvarial fracture. The surrounding soft tissues are unremarkable. IMPRESSION: 1. No evidence of acute intracranial abnormality.
--- NOTE | 2025-03-15 07:24 | DVH ---
INDICATION: sob TECHNIQUE: Frontal view of the chest. COMPARISON: XY CHEST XRAY 1 VIEW on DOS: 08/03/24 FINDINGS: . The heart and mediastinal contours are grossly unremarkable. There is no evidence of pleural disea se. The lungs are clear. The bony structures of the chest are intact without fracture. IMPRESSION: 1. No evidence of acute disease.
[2025-03-15 07:42] LABS: Chloride 102 mmol/L (98-107); Sodium 138 mmol/L (136-145)
[2025-03-15 07:43] LABS: Anion Gap 10 (5-15); Calcium 9.5 mg/dL (8.7-10.4); Carbon Dioxide 26 mmol/L (20-31)
[2025-03-15 07:47] LABS: Hematocrit 42.5 % (36.0-46.0); Hemoglobin 15.5 g/dL (12.2-16.2); Mean Corpuscular Hemoglobin 32.3 pg (28.0-32.0); Mean Corpuscular Volume 88.3 fL (80.0-100.0)
[2025-03-15 07:48] LABS: BUN/Creatinine Ratio 14.3 (10.0-20.0); Blood Urea Nitrogen 11 mg/dL (9-23)
[2025-03-15 07:53] LABS: Glucose 243 mg/dL (74-106); Potassium 3.5 mmol/L (3.5-5.1)
[2025-03-15] MEDS: HALOPERIDOL LACTATE 5 MG/ML INJ VIAL ONE (08:13)
[2025-03-15] MEDS: diphenhdrAMINE HCL 50 MG/1 ML VL ONE (08:13)
[2025-03-15 08:31] LABS: Total Cells Counted 100.0 (100)
[2025-03-15] MEDS: ACETAMINOPHEN IV 1000 MG/100ML (10MG/ML) IV ONE (08:57)
[2025-03-15 10:19] LABS: Urine Protein, UAD Negative (Negative)
--- NOTE | 2025-03-15 15:43 | DVHHP2 ---
History of Present Illness History of Present Illness This is a 59-year-old female with past medical history of seizures, HLD, type 2 diabetes mellitus patient brought by EMS due to seizure episode at home. As per son and , patient was on bed and started shaking and then generalized seizure noted. No involuntary bladder bowel movement noted. Family member called EMS and during patient on the way to hospital there is another episode of seizure and get Versed. patient last admission on August 03, 2024 due to generalized tonic-clonic seizures and treated by Yumi and Guillermo briones seen by Neurology Dr. Qiu. CT head negative MRI brain negative EEG mildly abnormal. In ER, patient become agitated and noncooperative and received levetiracetam 1 g loading dose, Haldol, Benadryl and lorazepam. During examination in ER, patient denies any fever, cough, SOB, dysuria, abdominal pain, headache, visual disturbance or any focal neurological weakness. 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 Hx Family History: Reviewed,noncontributory to illness Social History Smoker: Non-Smoker Alcohol: Denies ETOH Use Drugs: Denies Drug Use Lives In: Home Review of Systems Constitutional: Yes: Weakness; No: Fever, Chills, Sweats, Malaise, Other Eyes: No: Pain, Vision change, Conjunctivae inflammation, Eyelid inflammation, Other, Redness ENT: No: Ear pain, Ear discharge, Nose pain, Nose discharge, Nose congestion, Mouth pain, Mouth swelling, Throat pain, Throat swelling, Other Respiratory: No: Cough, Dry, Shortness of breath, SOB with excertion, Wheezing, Hemoptysis, Pleuritic Pain, Sputum, Wheezing, Other Cardiovascular: No: Chest Pain, Palpitations, Orthopnea, Paroxysmal Noc. Dyspnea, Edema, Lt Headedness, Other Gastrointestinal: No: Nausea, Vomiting, Abdominal Pain, Diarrhea, Constipation, Melena, Hematochezia, Other Genitourinary: No Dysuria, No Frequency, No Incontinence, No Hematuria, No Retention, No Other Musculoskeletal: No: other, neck pain, shoulder pain, arm pain, back pain, hand pain, leg pain, foot pain Skin: No: Rash, Lesions, Jaundice, Bruising, Other Neurological: Seizures Allergies: Coded Allergies: NO KNOWN ALLERGIES (Unverified , 04/20/24) Exam Vital Signs Vital Signs Date Time Temp Pulse Resp B/P (MAP) Pulse Ox O2 Delivery O2 Flow Rate FiO2 03/15/25 13:49 98.6 77 20 127/78 (94) 96 98.6 03/15/25 07:07 Room Air* 0 21 General Appearance: Cooperative, Other (Looks lethargic) HEENT: Atraumatic, PERRLA, EOMI Respiratory: Clear to auscultation, Normal air movement Cardiovascular: Regular rate, Normal S1, Normal S2 Abdominal: Normal bowel sounds, Soft, No tenderness Extremities: No clubbing, No cyanosis, No edema, Normal pulses Skin: No rashes, No breakdown Neuro: Normal speech, Normal tone, Sensation intact Labs/Xrays Labs Test 03/15/25 09:46 03/15/25 07:15 Range/Units Urine Color Light-yellow Yellow Urine Clarity Clear Clear Urine pH 7.0 5.0-9.0 Urine Specific [place] 1.014 1.001-1.035 Urine Protein Negative Negative Urine Ketones Negative Negative Urine Blood Negative Negative /uL Urine Nitrite Negative Negative Urine Bilirubin Negative Negative Urine Urobilinogen Normal Negative mg/dL Urine Leukocyte Esterase Negative Negative /uL Urine RBC <1 0 - 4 /hpf Urine Microscopic WBC < 1 0-5 /HPF Urine Squamous Epithelial Cells None seen <5 /hpf Urine Bacteria None seen None Seen /hpf Urine Mucus Few None Seen Urine Glucose 3+ H Normal mg/dL White Blood Count 9.5 4.4-10.8 10^3/uL Red Blood Count 4.82 4.0-5.20 10^6/uL Hemoglobin 15.5 12.2-16.2 g/dL Hematocrit 42.5 36.0-46.0 % Mean Corpuscular Volume 88.3 80.0-100.0 fL Mean Corpuscular Hemoglobin 32.3 H 28.0-32.0 pg Mean Corpuscular Hemoglobin Concent 36.5 H 32.0-36.0 g/dL Red Cell Distribution Width 12.8 11.8-14.3 % Platelet Count 221 140-450 10^3/uL Mean Platelet Volume 7.2 6.9-10.8 fL Neutrophils (%) (Auto) 37.0-80.0 % Lymphocytes (%) (Auto) 10.0-50.0 % Monocytes (%) (Auto) 0.0-12.0 % Basophils (%) (Auto) 0.0-2.0 % Neutrophils # (Auto) 1.6-8.6 10 ^3/uL Lymphocytes # (Auto) 0.4-5.4 10 ^3/uL Monocytes # (Auto) 0-1.3 10 ^3/uL Differential Total Cells Counted 100.0 100 Neutrophils % (Manual) 90 H 37.0-80.0 Band Neutrophils % (Manual) 0 Lymphocytes % (Manual) 6 L 10.0-50.0 Monocytes % (Manual) 4 0-12 Eosinophils % (Manual) 0 0-7 Basophils % (Manual) 0 0.0-2.0 Metamyelocytes % (manual) 0 Myelocytes % (Manual) 0 Promyelocytes % (Manual) 0 Blast Cells % (Manual) 0 Reactive Lymphocytes 0 Platelet Estimate Adequate Sodium Level 138 136-145 mmol/L Potassium Level 3.5 3.5-5.1 mmol/L Chloride Level 102 98-107 mmol/L Carbon Dioxide Level 26 20-31 mmol/L Anion Gap 10 5-15 Blood Urea Nitrogen 11 9-23 mg/dL Creatinine 0.77 0.550-1.02 mg/dL Glomerular Filtration Rate Calc 88 >90 mL/min BUN/Creatinine Ratio 14.3 10.0-20.0 Serum Glucose 243 H 74-106 mg/dL Calcium Level 9.5 8.7-10.4 mg/dL Troponin I High Sensitivity < 3 L </=34 ng/L SEPSIS Sepsis Screen Date sepsis recognized/suspect: Mar 15, 2025 Time Sepsis recognized/suspect: 07 Recent Procedure: No On Antibiotic Therapy: No Respiratory Rate >20: No Heart Rate >90: Yes Temp<36 C (96.8 F) or >38.3 C: No SBP <90 or MAP <65 mmHG: No New Acute Mental Status Change: No Is the patient on CPAP, BIPAP,: No Physician Orders Insert Hunt Catheter QSHIFT (03/15/25 09:00) Vital Signs Date Time Temp Pulse Resp B/P (MAP) Pulse Ox O2 Delivery O2 Flow Rate FiO2 03/15/25 13:49 98.6 77 20 127/78 (94) 96 98.6 03/15/25 12:00 84 18 131/78 (95) 97 03/15/25 11:01 91 18 131/74 (93) 98 03/15/25 10:01 87 20 141/73 (95) 95 03/15/25 09:01 100 20 131/83 (99) 97 03/15/25 08:29 92 17 129/78 (95) 98 Laboratory Tests Test 03/15/25 07:15 White Blood Count 9.5 10^3/uL (4.4-10.8) Medications Medications Dose Ordered Sig/Twyla Route Start Time Stop Time Status Last Admin Dose Admin Acetaminophen 1,000 mg ONCE ONCE IV 03/15/25 08:45 03/15/25 08:46 DC 03/15/25 08:57 1,000 MG Diphenhydramine HCl 50 mg ONCE ONCE IV 03/15/25 06:30 03/15/25 06:31 DC 03/15/25 06:28 50 MG Haloperidol Lactate 10 mg ONCE ONCE IM 03/15/25 06:30 03/15/25 06:31 DC 03/15/25 06:23 10 MG Levetiracetam 100 ml @ 400 mls/hr ONCE ONCE IV 03/15/25 07:15 03/15/25 07:29 DC 03/15/25 07:19 400 MLS/HR Lorazepam 2 mg ONCE STAT IV 03/15/25 06:16 03/15/25 06:17 DC 03/15/25 06:20 2 MG Sodium Chloride 1,000 ml @ 150 mls/hr Q6H40M ONCE IV 03/15/25 06:45 03/15/25 13:24 DC 03/15/25 06:45 150 MLS/HR Sodium Chloride 1,000 ml @ 1,000 mls/hr Q1H ONCE IV 03/15/25 06:45 03/15/25 07:44 DC 03/15/25 06:45 1,000 MLS/HR Assessment/Plan Assessment/Plan Generalized tonic-clonic seizures Patient received, NSS, Haldol, Benadryl, lorazepam in ER CT head-no intracranial abnormality or hemorrhage CXR: No cardiopulmonary disease Levetiracetam loading 1gr was given in the ER, we completed 2gr, total 3 gr and continue levetiracetam 1000 mg IV b.i.d. Ativan IV-seizure protocol Patient seen by neurologist last admission recommended Keppra 1000 mg p.o. b.i.d. Monitor telemetry SIRS, no sepsis During admission patient temperature 100.8, tachycardic and no leukocytosis but left-shifted, UA-negative for UTI, troponin less than 3 COVID-19 and influenza a and B test ordered Monitor for vitals Blood culture Hyperlipidemia Continue atorvastatin 10 mg p.o. q.h.s. Lipid profile Lifestyle modification Type 2 diabetes mellitus be hyperglycemia CMP blood sugar 243 Home medication metformin 1000 b.i.d., Januvia 100 mg p.o. daily Insulin sliding scale Lantus 10 units subcutaneously daily Monitor blood sugar Diet: Diabetic diet DVT prophylaxis; patient ambulating Goals of care discussions, he generalized weakness more than 27 minute spent with patient. Full code status. Case discussed with DR. Diaz Cosigned by Dr Huitron PGY2, resident Plan discussed with: Patient, Other (Nurse, son, .) Date of Service: Mar 15, 2025 Billing Provider: JEANE DIAZ MD Common Visit Codes: 20410-BINLDKG INP/OBS CARE (HIGH) Secondary Visit Codes: 01412-HRFHMBLO CARE PLAN 30 MINUTES ALMA ROSA COSTELLO RESIDENT Mar 15, 2025 15:43
[2025-03-15] MEDS ORDERED: LORazepam 2MG/ML-1ML VIAL IV PRN (15:45)
[2025-03-15] MEDS ORDERED: DEXTROSE (50%) 50ML SYRG IV PRN (15:45)
[2025-03-15] MEDS ORDERED: InsuLIN REG 1unit/0.01ml Soln (100units/ml) SC SCH (17:00)
[2025-03-15] MEDS: INSULIN LISPRO (HUMAN) 100 UNITS/ML ML SC SCH (17:00)
[2025-03-15] MEDS: ACCU-CHEK COMFORT CURVE STRIP VI SCH (17:15)
[2025-03-15] MEDS: levETIRAcetam 1000 mg/100ml 100 ML IV SCH (17:51)
[2025-03-15] MEDS ORDERED: levETIRAcetam 1000 mg/100ml 100 ML IV ONE (18:30)
[2025-03-15 19:14] LABS: COVID19 ANTIGEN SOFIA FIA NEGATIVE (NEGATIVE)
[2025-03-15 19:30] VITALS: PULSE 67; RESP 18; O2SAT 96
[2025-03-15 21:41] VITALS: BP 132/80; PULSE 71; RESP 17; TEMP 97.6; O2SAT 96
[2025-03-15 21:47] VITALS: BP 132/80; PULSE 71; RESP 17; TEMP 97.6; O2SAT 96
[2025-03-15] MEDS ORDERED: levETIRAcetam 500 MG TAB PO SCH (22:00)
[2025-03-15] MEDS ORDERED: METF-370 PO (22:21)
[2025-03-15] MEDS ORDERED: LEVE100012 PO (22:21)
[2025-03-15] MEDS: INSULIN LANTUS (GLARGINE) 1 /0.01ml (100units/ml) SC SCH (22:37)
[2025-03-15] MEDS: ATORVASTATIN 20 MG TAB PO SCH (22:37)
[2025-03-16] VITALS (7 sets, daily range): BP systolic 100–135; BP diastolic 67–80; PULSE 56–80; RESP 16–18; TEMP 97.4–98.2; O2SAT 95–98
[2025-03-16 08:12] LABS: Hematocrit 42.1 % (36.0-46.0); Hemoglobin 15.3 g/dL (12.2-16.2); Mean Corpuscular Hemoglobin 32.2 pg (28.0-32.0); Mean Corpuscular Volume 88.4 fL (80.0-100.0); Nucleated Red Blood Cells % 0.1 %
[2025-03-16 08:28] LABS: Alanine Aminotransferase 26 U/L (7-40); Albumin 4.2 g/dL (3.2-4.8); Anion Gap 9 (5-15); BUN/Creatinine Ratio 15.0 (10.0-20.0); Blood Urea Nitrogen 9 mg/dL (9-23); Calcium 9.0 mg/dL (8.7-10.4); Carbon Dioxide 27 mmol/L (20-31); Chloride 106 mmol/L (98-107); Potassium 3.6 mmol/L (3.5-5.1); Sodium 142 mmol/L (136-145); Triglycerides 101 mg/dL (< 150)
[2025-03-16 08:29] LABS: Cholesterol 150 mg/dL (< 200); HDL Cholesterol 44 mg/dL (40-59)
[2025-03-16 08:30] LABS: Alkaline Phosphatase 43 U/L (46-116); Bilirubin, Total 1.2 mg/dL (0.2-1.0); Creatine Kinase IFCC 405 U/L (34-145); Glucose 110 mg/dL (74-106)
[2025-03-16 08:50] LABS: Total Protein 6.7 g/dL (5.7-8.2)
[2025-03-16] MEDS: levETIRAcetam 1000 mg/100ml 100 ML IV SCH (10:38)
--- NOTE | 2025-03-16 22:40 | DVHPNRES ---
Progress Note Date Seen: Mar 16, 2025 Resident Creating Document: ALMA ROSA COSTELLO RESIDENT Medical Necessity Reason Pt with a Central, PICC or Fol: No Subjective Review of Systems This is a 59-year-old female with past medical history of seizures, HLD, type 2 diabetes mellitus patient brought by EMS due to seizure episode at home. As per son and , patient was on bed and started shaking and then generalized seizure noted. No involuntary bladder bowel movement noted. Family member called EMS and during patient on the way to hospital there is another episode of seizure and get Versed. patient last admission on August 03, 2024 due to generalized tonic-clonic seizures and treated by Yumi and Atkhushi pShanterShanten. seen by Neurology Dr. Qiu. CT head negative MRI brain negative EEG mildly abnormal. In ER, patient become agitated and noncooperative and received levetiracetam 1 g loading dose, Haldol, Benadryl and lorazepam. During examination in ER, patient denies any fever, cough, SOB, dysuria, abdominal pain, headache, visual disturbance or any focal neurological weakness. 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 No fever, cough, SOB, chest pain, dysuria, hematuria noted. on bedside and discussed plan of treatment. Hunt catheter removed today. No seizure episode reported since admission. Patient tolerating oral food well, having bowel and bladder movement. Objective vital signs Vital Sign Date Time Temp Pulse Resp B/P (MAP) Pulse Ox O2 Delivery O2 Flow Rate FiO2 03/16/25 20:45 97.4 80 17 135/79 (97) 98 97.4 03/16/25 08:00 Room Air* 0 21 Total Intake and Output 03/15/25 03/15/25 03/16/25 15:00 23:00 07:00 Intake Total 2150 ml 100 ml 0 ml Output Total 1550 ml 750 ml 300 ml Balance 600 ml -650 ml -300 ml medications Current Medications Medications Dose Ordered Sig/Twyla Route Start Time Stop Time Status Last Admin Dose Admin Atorvastatin Calcium 10 mg HS PO 03/15/25 22:00 03/16/25 22:05 10 MG Diagnostic Test (Pha) 1 strip ACHS 03/15/25 17:00 03/16/25 17:00 1 STRIP Dextrose 50 ml UD PRN IV 03/15/25 15:45 Lorazepam 1 mg Q5MINP PRN IV 03/15/25 15:45 Insulin Human Lispro AC SC 03/15/25 17:00 03/16/25 17:31 1 UNITS Levetiracetam 100 ml @ 400 mls/hr BID IV 03/16/25 10:00 03/16/25 22:05 400 MLS/HR Levetiracetam 100 ml @ 400 mls/hr Q15M IV 03/15/25 17:45 03/15/25 18:15 Cancel Examination General Appearance: Cooperative, not in acute distress HEENT: Atraumatic, PERRLA, EOMI Respiratory: Clear to auscultation, Normal air movement Cardiovascular: Regular rate, Normal S1, Normal S2 Abdominal: Normal bowel sounds, Soft, No tenderness Extremities: No clubbing, No cyanosis, No edema, Normal pulses Skin: No rashes, No breakdown Neuro: Normal speech, Normal tone, Sensation intact laboratory and microbiology Laboratory Tests 03/16/25 07:43 Test 03/16/25 07:43 Range/Units Serum Glucose 110 H 74-106 mg/dL Microbiology Date/Time Source Procedure Growth Status 03/15/25 17:14 Blood Blood Culture - Preliminary NO GROWTH AFTER 24 HOURS OF INCUBATION. Resulted Problem List/Assessment/Plan Problem List/Assessment/Plan Assessment: Status epilepticus, resolved generalized tonic-clonic seizures SIRS, no sepsis hyperlipidemia type 2 diabetes mellitus with hyperglycemia transaminitis increased CPK likely rhabdomyolysis asymptomatic hyperthyroidism Image: CT head without contrast negative for any intracranial hemorrhage or lesion. Plan: Levetiracetam 1000 mg IV b.i.d. Atorvastatin 10 mg p.o. q.h.s. Lantus 10 units q.h.s. Insulin lispro lorazepam 2 mg IV Q 5 minutes p.r.n. if seizures Monitor blood sugar Monitor vital Seizure precaution Patient was taking 500 mg daily of keppra, she is advised to resume dose recommended by Dr Qiu, 1000 mg BID to avoid new episodes of seizures Patient is also advised to continue close f/u with PCP and repeat thyroid function Goals of care discussions, more than 23 minute spent with patient. Code status: full code Cosigned by Dr Huitron, PGY2, resident Case discussed with Dr. Diaz Plan discussed with: Patient, Other (Nurse, ) My Orders My Orders Orders - ALMA ROSA COSTELLO RESIDENT Procedure Category Date Status Time Creatine Kinase LAB 03/17/25 Verified 04:00 Complete Blood Count LAB 03/17/25 Verified 04:00 Basic Metabolic Panel LAB 03/17/25 Verified 04:00 Vitamin D, 25-Hydroxy LAB 03/17/25 Verified 04:00 ALMA ROSA COSTELLO RESIDENT Mar 16, 2025 22:40 NITA WEISS RESIDENT Mar 16, 2025 23:19 JAIR RAMOS RESIDENT Mar 17, 2025 21:28
[2025-03-17 00:32] VITALS: BP 126/76; PULSE 77; RESP 18; TEMP 98; O2SAT 97
[2025-03-17 04:50] VITALS: BP 132/82; PULSE 92; RESP 19; TEMP 97.6; O2SAT 97
[2025-03-17 07:29] LABS: Hematocrit 42.2 % (36.0-46.0); Hemoglobin 15.5 g/dL (12.2-16.2); Mean Corpuscular Hemoglobin 32.0 pg (28.0-32.0); Mean Corpuscular Volume 87.2 fL (80.0-100.0); Nucleated Red Blood Cells % 0.2 %
[2025-03-17 07:43] LABS: Calcium 9.4 mg/dL (8.7-10.4); Chloride 105 mmol/L (98-107); Potassium 3.6 mmol/L (3.5-5.1); Sodium 142 mmol/L (136-145)
[2025-03-17 07:44] LABS: Anion Gap 12 (5-15); Carbon Dioxide 25 mmol/L (20-31)
[2025-03-17 07:49] LABS: BUN/Creatinine Ratio 15.4 (10.0-20.0); Blood Urea Nitrogen 10 mg/dL (9-23)
[2025-03-17 08:10] LABS: Creatine Kinase IFCC 211 U/L (34-145); Glucose 157 mg/dL (74-106)
[2025-03-17 09:00] VITALS: BP 132/85; PULSE 81; RESP 20; TEMP 96.3; O2SAT 98
[2025-03-17] MEDS ORDERED: LEVE100012 PO (11:43)
[2025-03-17 13:00] VITALS: BP 154/94; PULSE 74; RESP 18; TEMP 98; O2SAT 98
--- NOTE | 2025-03-17 19:24 | DVHDSRES ---
Discharge Summary Date of Admission Resident Creating Document: ALMA ROSA COSTELLO RESIDENT Mar 15, 2025 at 15:35 Date of Discharge: Mar 17, 2025 Labs/Diagnostic Data: Laboratory Results Test 03/17/25 10:49 03/17/25 05:42 03/16/25 07:43 03/15/25 17:25 POC Glucose 199 mg/dl (70-106) White Blood Count 6.0 10^3/uL (4.4-10.8) Red Blood Count 4.84 10^6/uL (4.0-5.20) Hemoglobin 15.5 g/dL (12.2-16.2) Hematocrit 42.2 % (36.0-46.0) Mean Corpuscular Volume 87.2 fL (80.0-100.0) Mean Corpuscular Hemoglobin 32.0 pg (28.0-32.0) Mean Corpuscular Hemoglobin Concent 36.7 g/dL (32.0-36.0) Red Cell Distribution Width 12.7 % (11.8-14.3) Platelet Count 225 10^3/uL (140-450) Mean Platelet Volume 7.1 fL (6.9-10.8) Neutrophils (%) (Auto) 66.1 % (37.0-80.0) Lymphocytes (%) (Auto) 24.0 % (10.0-50.0) Monocytes (%) (Auto) 8.4 % (0.0-12.0) Eosinophils (%) (Auto) 1.3 % (0.0-7.0) Basophils (%) (Auto) 0.2 % (0.0-2.0) Neutrophils # (Auto) 4.0 10 ^3/uL (1.6-8.6) Lymphocytes # (Auto) 1.4 10 ^3/uL (0.4-5.4) Monocytes # (Auto) 0.5 10 ^3/uL (0-1.3) Eosinophils # (Auto) 0.1 10 ^3/uL (0-0.8) Basophils # (Auto) 0 10 ^3/uL (0-0.2) Nucleated Red Blood Cells 0.2 % Sodium Level 142 mmol/L (136-145) Potassium Level 3.6 mmol/L (3.5-5.1) Chloride Level 105 mmol/L (98-107) Carbon Dioxide Level 25 mmol/L (20-31) Anion Gap 12 (5-15) Blood Urea Nitrogen 10 mg/dL (9-23) Creatinine 0.65 mg/dL (0.550-1.02) Glomerular Filtration Rate Calc 101 mL/min (>90) BUN/Creatinine Ratio 15.4 (10.0-20.0) Serum Glucose 157 mg/dL (74-106) Calcium Level 9.4 mg/dL (8.7-10.4) Creatine Kinase 211 U/L (34-145) Vitamin D 25-Hydroxy 27.1 ng/mL (30.0-100) Hemoglobin A1c 6.7 % A1C (<5.7) Total Bilirubin 1.2 mg/dL (0.2-1.0) Aspartate Amino Transferase (AST) 44 U/L (13-40) Alanine Aminotransferase (ALT) 26 U/L (7-40) Alkaline Phosphatase 43 U/L (46-116) C-Reactive Protein High Sensitivity 0.62 mg/dL (<1.0) Total Protein 6.7 g/dL (5.7-8.2) Albumin 4.2 g/dL (3.2-4.8) Triglycerides Level 101 mg/dL (< 150) Cholesterol Level 150 mg/dL (< 200) LDL Cholesterol 97 mg/dL (< 100) HDL Cholesterol 44 mg/dL (40-59) Vitamin B12 Level 624 pg/mL (211-911) Thyroid Stimulating Hormone (TSH) 0.52 uIU/mL (0.55-4.78) Influenza Type A Antigen Negative (Negative) Influenza Type B Antigen Negative (Negative) SARS-CoV-2 Antigen (Rapid) Negative (NEGATIVE) Test 03/15/25 09:46 03/15/25 07:15 Urine Color Light-yellow (Yellow) Urine Clarity Clear (Clear) Urine pH 7.0 (5.0-9.0) Urine Specific [place] 1.014 (1.001-1.035) Urine Protein Negative (Negative) Urine Ketones Negative (Negative) Urine Blood Negative /uL (Negative) Urine Nitrite Negative (Negative) Urine Bilirubin Negative (Negative) Urine Urobilinogen Normal mg/dL (Negative) Urine Leukocyte Esterase Negative /uL (Negative) Urine RBC <1 /hpf (0 - 4) Urine Microscopic WBC < 1 /HPF (0-5) Urine Squamous Epithelial Cells None seen /hpf (<5) Urine Bacteria None seen /hpf (None Seen) Urine Mucus Few (None Seen) Urine Glucose 3+ mg/dL (Normal) Differential Total Cells Counted 100.0 (100) Neutrophils % (Manual) 90 (37.0-80.0) Band Neutrophils % (Manual) 0 Lymphocytes % (Manual) 6 (10.0-50.0) Monocytes % (Manual) 4 (0-12) Eosinophils % (Manual) 0 (0-7) Basophils % (Manual) 0 (0.0-2.0) Metamyelocytes % (manual) 0 Myelocytes % (Manual) 0 Promyelocytes % (Manual) 0 Blast Cells % (Manual) 0 Reactive Lymphocytes 0 Platelet Estimate Adequate Troponin I High Sensitivity < 3 ng/L (</=34) Other Laboratory Tests 03/17/25 05:42 Brief Hx & Hospital Course: This is a 59-year-old female with past medical history of seizures, HLD, type 2 diabetes mellitus patient brought by EMS due to seizure episode at home. As per son and , patient was on bed and started shaking and then generalized seizure noted. No involuntary bladder bowel movement noted. Family member called EMS and during patient on the way to hospital there is another episode of seizure and get Versed. patient last admission on August 03, 2024 due to generalized tonic-clonic seizures and treated by Yumi and Guillermo briones seen by Neurology Dr. Qiu. CT head negative MRI brain negative EEG mildly abnormal. In ER, patient become agitated and noncooperative and received levetiracetam 1 g loading dose, Haldol, Benadryl and lorazepam. During examination in ER, patient denies any fever, cough, SOB, dysuria, abdominal pain, headache, visual disturbance or any focal neurological weakness. 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 Patient initially agitated and disoriented eventually managed with IV Haldol. Additional Levetiracetam 2000 mg IV stat given and continue levetiracetam 1000 mg IV b.i.d. patient monitor on telemetry and no seizure activity reported. Patient was taking 500 mg daily of keppra at home but she was advised to resume dose recommended by Dr Qiu, 1000 mg BID to avoid new episodes of seizures ,Patient is also advised to continue close f/u with PCP and repeat thyroid function. Patient currently denies any fever, SOB, cough, chest pain, diarrhea, constipation, dysuria or any focal weakness. Patient is hemodynamically stable for discharge. Patient has received maximum benefit from inpatient treatment. Time was given to answer patient's questions and concerns in Layman terms. Patient verbalized understanding and agree with treatment and follow-up. The patient was recommended to return to ER if any experienced any worsening symptoms such as but not limited to current symptoms. Patient advised to follow-up with outpatient clinic within 2 weeks after discharge, follow-up with PCP, call Neurology specialist for appointment. Physical examination General Appearance: Cooperative, not in acute distress HEENT: Atraumatic, PERRLA, EOMI Respiratory: Clear to auscultation, Normal air movement Cardiovascular: Regular rate, Normal S1, Normal S2 Abdominal: Normal bowel sounds, Soft, No tenderness Extremities: No clubbing, No cyanosis, No edema, Normal pulses Skin: No rashes, No breakdown Neuro: Normal speech, Normal tone, Sensation intact Operations or Procedures PROCEDURE(s): HWOCT - HEAD WITHOUT CONTRAST REASON: seizure ORDER NUMBER(s): [id number], ACCESSION NUMBER(s): [id number] EXAM: CT HEAD WITHOUT CONTRAST INDICATION: Seizure TECHNIQUE: CT of the head without intravenous contrast. Coronal and sagittal reformatted images are submitted. Radiation Dose : 1. Head: CT Dose: CTDI volume is 50.7 mGy. Dose-length product is 810.97 mGy*cm The dose indicators for CT are the volume Computed Tomography (CT) Dose Index (CTDIvol) and the Dose Length Product (DLP), and are measured in units of mGy and mGy-cm, respectively. These indicators are not patient dose, but values generated from the CT scanner acquisition factors. The report includes radiation exposure data for exposures received during this examination. All CT scans at this medical facility are performed using dose modulation techniques as appropriate to a performed exam including the following: Automated exposure control was utilized; adjustment of the MA and/or KV according to patient size; and use of iterative reconstruction technique. COMPARISON: MRI BRAIN HEAD WO CONTRAST on DOS: 08/03/24, CT HEAD WITHOUT CONTRAST on DOS: 08/03/24. FINDINGS: There is no evidence of acute intracranial hemorrhage, extra-axial collection, mass effect, midline shift, herniation or hydrocephalus. The ventricles, sulci and cisterns are age appropriate. The crawley-white differentiation is intact. The visualized paranasal sinuses and mastoid air cells are clear. No depressed calvarial fracture. The surrounding soft tissues are unremarkable. IMPRESSION: 1. No evidence of acute intracranial abnormality. ATED BY: CATA GARCIA MD DICTATED DATE/TIME: 03/15/25 0717 INDICATION: sob TECHNIQUE: Frontal view of the chest. COMPARISON: XY CHEST XRAY 1 VIEW on DOS: 08/03/24 FINDINGS: . The heart and mediastinal contours are grossly unremarkable. There is no evidence of pleural disease. The lungs are clear. The bony structures of the chest are intact without fracture. IMPRESSION: 1. No evidence of acute disease. ATED BY: JADIEL LOPEZ MD DICTATED DATE/TIME: 03/15/25 07 Condition at Discharge: Stable Final Diagnosis/Problems List Status epilepticus, resolved generalized tonic-clonic seizures SIRS, no sepsis hyperlipidemia type 2 diabetes mellitus with hyperglycemia transaminitis increased CPK likely rhabdomyolysis asymptomatic hyperthyroidism Discharge Disposition: Home Discharge Instruct/Medications Diet: Cardiac 2g Na,low cholest Activity: Light activity Follow Up/Referral: dc clinic PCP Neurology Medications: see prescription Scheduled Levetiracetam (Keppra), 1 TAB PO BID Metformin Hydrochloride (Metformin Hcl), 1 TAB PO BID, (Reported) Discontinued Medications Atorvastatin Calcium (Lipitor), 10, (Reported) Ibuprofen Micronized (Motrin Tablet), 600 MG PO TID PRN Levofloxacin Hemihydrate (Levaquin 500 Mg), 1 TAB PO DAILY Discharge Statement: "Patient was advised to return to the ER or call 911 if any headaches, dizziness, shortness of breath, chest pain, abdominal pain, bleeding, fevers, or worsening of medical condition. Patient was counseled about treatment plan, medications, possible side effects, patientverbalized understanding. All questions were answered to the best of my ability. This discharge took greater then 30 minutes in planning, reviewing documentation, counseling the patient, and discussing with other team members." ASSESSMENT ASSESSMENT Assessment breakthrough seizure ALMA ROSA COSTELLO RESIDENT Mar 17, 2025 19:24 JAIR RAMOS RESIDENT Mar 17, 2025 21:30
== END 2025-03-17 14:20 | disposition home or self-care (01) | DRG 53 ==
LOC: EDBD 04:48 → ER 04:49 → OVERFLOW 15:35 → TELE-WESTW 21:27 → WEST WING 03-16 11:55
PROVIDERS: ADMIT Student in an Organized Health Care Education/Training Program; ATTEND Emergency Medicine
DX: G40.401 Other generalized epilepsy and epileptic syndromes, not intractable, with status epilepticus (principal); M62.82 Rhabdomyolysis; R65.10 Systemic inflammatory response syndrome (SIRS) of non-infectious origin without acute organ dysfunction; E05.90 Thyrotoxicosis, unspecified without thyrotoxic crisis or storm; E11.65 Type 2 diabetes mellitus with hyperglycemia; E78.5 Hyperlipidemia, unspecified; Z20.822 Contact with and (suspected) exposure to COVID-19; R74.01 Elevation of levels of liver transaminase levels; Z79.84 Long term (current) use of oral hypoglycemic drugs; Z79.4 Long term (current) use of insulin
CPT/HCPCS: 36415; 70450; 71045; 80048; 80053; 80061; 81001; 82306; 82550; 82607; 82962; 83036; 84443; 84484; 85007; 85025; 85027; 86141; 87040; 87426; 87804; 96361; 96374; 96375; 99291; G0378; J0131; J1815

== ENCOUNTER 2025-05-12 12:56 | Emergency (ER) | payer MEDICAID ==
[~2025-05-12] VITALS: Ht 149.9 cm; Wt 53.3 kg
[~2025-05-12 12:56] MED LIST changes: -ATOR10TA; -IBU600T PO; +LEVE100012 PO; -LEVO500T91 PO; +METF-370 PO
--- NOTE | 2025-05-12 13:21 | ED.PDOC ---
History of Present Illness(SKN HPI Comments A 59 YEAR OLD FEMALE PRESENTS TO THE ED WITH COMPLAINT OF RASH F EYELIDS. PATIENT STATES SHE HAS BEEN EXPERIENCING A RASH ON HER BILATERAL EYELIDS FOR THE PAST 3 WEEKS. PATIENT REPORTS SHE HAS BEEN USING OVER THE COUNTER CREAMS WITH NO IMPROVEMENT. PATIENT DENIES FEVER, CHILLS, SHORTNESS OF BREATH, CHEST PAIN, ABDOMINAL PAIN, NAUSEA, VOMITING, HEADACHE, OR OTHER COMPLAINTS. NO OTHER SYMPTOMS OR MODIFYING FACTORS AT THIS TIME. PATIENT IS ALERT, ORIENTED X 4, AND HAS STEADY GAIT. Chief Complaint: Eye Problem Time Seen by MD: 13:05 History of Present Illness: Nurses Notes, Medications, Allergies Allergies: Coded Allergies: NO KNOWN ALLERGIES (Unverified , 04/20/24) Home Meds Active Scripts Triamcinolone Acetonide (Triamcinolone Acetonide) 0.025 % Cre, 1 APPLIC TOP BID, #30 GRAMS Prov:NADIYA PRICE 05/12/25 Tobramycin Sulfate (Tobrex) [address], 2 DROP OP QID, #5 ML Prov:NADIYA PRICE 05/12/25 Levetiracetam (Keppra) 1,000 Mg Tab, 1 TAB PO BID for 90 Days, #180 TAB 3 Refills Prov:NITA WEISS RESIDENT 03/17/25 Reported Medications Metformin Hydrochloride (Metformin Hcl) 500 Mg Tab, 1 TAB PO BID, #180 TAB 1 Refill 03/15/25 Information Source: Patient Mode of Arrival: Ambulatory Severity: Mild Timing: Weeks Duration: Since onset Prehospital treatment: None Location: Eyes (BILATERAL EYELIDS) Mechanism: Spontaneous Onset Developed: Rash Occurence: Indoors Object: None Condition of Object: None Retained Foreign Body: No Wound Type: Papule, None Immunization Status of Animal: NA Tetanus: Unknown History of: None Associated Signs and Symptoms: Redness Past Medical History PAST MEDICAL HISTORY: DM, Seizures Surgical History: Denies all surgeries 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 ); denies: blurred vision, double vision, ear bleeding, ear discharge, ear drainage, ear pain, ear ringing, eye pain, hearing loss, mouth pain, mouth swelling, nasal discharge, nose bleeding, nose congestion, nose pain, photophobia, tearing, throat pain, throat swelling, voice changes Respiratory: denies: cough, hemoptysis, orthopnea, SOB at rest, shortness of breath, SOB with excertion, stridor, wheezing, others Cardiovascular: denies: chest pain, dizzy spells, diaphoresis, Dyspnea on exertion, edema, irregular heart beat, left arm pain, lightheadedness, palpitations, PND, syncope, others Gastrointestinal: denies: abdomen distended, abdominal pain, blood streaked bowels, constipated, diarrhea, dysphagia, difficulty swallowing, hematemesis, melena, nausea, poor appetite, poor fluid intake, rectal bleeding, rectal pain, vomiting, others Genitourinary: denies: abnormal vagina bleeding, burning, dyspareunia, dysuria, flank pain, frequency, hematuria, incontinence, pain, , vagina discharge, urgency, others Neurological: denies: dizziness, fainting, headache, left sided numbness, left sided weakness, numbness, paresthesia, pre-existing deficit, right sided numbness, right sided weakness, seizure, speech problems, tingling, tremors, weakness, others Musculoskeletal: denies: back pain, gout, joint pain, joint swelling, muscle pain, muscle stiffness, neck pain, others Integumetry: reports: rash (RASH OF BILATERAL EYELIDS); denies: bruises, change in color, change in hair/nails, dryness, laceration, lesions, lumps, wounds, others Allergic/Immunocompromised: denies: Difficulty Healing, Frequent Infections, Hives, Itching, others Hematologic/Lymphatic: denies: anemia, blood clots, easy bleeding, easy bruising, swollen glands, others Endocrine: denies: excessive hunger, excessive sweating, excessive thirst, excessive urination, flushing, intolerance to cold, intolerance to heat, une xplained weight gain, unexplained weight loss, others Psychiatric: denies: anxiety, bipolar disorder, depression, hopeless, panic disorder, schizophrenia, sleepless, suicidal, others All Other Systems: Reviewed and Negative Physical Exam General Appearance: No Apparent Distress, Normal HEENT: Eye Lid (L) (LOCALIZED REDNESS SKIN RASH ON LEFT UPPER AND LOWER EYELID. NO TENDERNESS AND SWELLING. ), Eye Lid (R) (LOCALIZED REDNESS SKIN RASH ON RIGHT LOWER EYELID. ), Normal ENT Inspection, PERRL/EOMI, Pharynx Normal, TMs Normal, Other (BILATERAL SUBCONJUNCTIVA HEMORRHAGE WITH GREEN DISCHARGE. ) Neck: Full Range of Motion, Non-Tender, Normal, Normal Inspection Respiratory: Chest Non-Tender, Lungs Clear, No Accessory Muscle Use, No Respiratory Distress, Normal Breath Sounds Cardiovascular: No Edema, No JVD, No Murmur, No Gallop, Normal Peripheral Pulses, Regular Rate/Rhythm Breast Exam: Deferred Gastrointestinal: No Organomegaly, Non Tender, No Pulsatile Mass, Normal Bowel Sounds, Soft Genitalia: Deferred Pelvic: Deferred Rectal: Deferred Extremities: No calf tenderness, Normal capillary refill, Normal inspection, Normal range of motion, Non-tender, No pedal edema Musculoskeletal : Apperance: Normal Neurologic: Alert, forming fixer II-XII nml as Tested, No Motor Deficits, Normal Affect, Normal Mood, No Sensory Deficits Cerebellar Function: Normal Reflexes: Normal Skin: Dry, Normal Color, Rash (ERYTHEMA SKIN RASH ON UPPER AND LOWER EYELIDS. ), Warm Peripheral Pulses: 2+ carotid (R), 2+ carotid (L) Lymphatic: No Adenopathy Was a procedure done? Was a procedure done?: No Differential Diagnosis (INTG) Differential Diagnosis: N/A Differential Diagnosis: Atopic dermatitis, Contact Dermatitis, Tinea, Urticaria Differential Diagnosis: N/A Abscess: N/A Differential Diagnosis: N/A X-Ray, Labs, Meds, VS Vital Signs Date Time Temp Pulse Resp B/P (MAP) Pulse Ox O2 Delivery O2 Flow Rate FiO2 05/12/25 13:33 85 18 97 Room Air 05/12/25 13:33 98.2 85 18 136/76 (96) 97 98.2 05/12/25 12:58 98.2 85 18 136/76 97 98.2 X-Ray, Labs, Meds, VS Comment EXTERNAL MEDICAL RECORDS REVIEWED: [NONE] INDEPENDENT HISTORIANS: [NONE] SOCIAL DETERMINANTS OF HEALTH: [NONE] LABS ORDERED: NONE REVIEWED AND INTERPRETED RESULTS: NONE IMAGING ORDERED: NONE TREATMENTS ORDERED: NONE PROCEDURES PERFORMED: NONE CRITICAL CARE TIME: NONE I HAVE DISCUSSED THE PATIENT WITH THE ATTENDING PHYSICIAN DR. BRIGHT AND HE AGREES WITH THE PATIENT'S PLAN OF CARE AND DISPOSITION. BASED ON HISTORY OF PRESENT ILLNESS, AND PHYSICAL EXAM, PATIENT WILL BE DISCHARGED HOME. DISCUSSED PLAN FOR DISCHARGE HOME WITH RX [TRIAMCINOLONE CREAM AND TOBREX EYEDROPS]. MEDICATION WARNINGS GIVEN. SHARED DECISION MAKING: DISCUSSED WITH PATIENT THAT THEIR WORKUP WAS NORMAL. PATIENT INSTRUCTED TO FOLLOW UP WITH PRIMARY CARE PROVIDER IN 1-2 DAYS FOR RE- EVALUATION OF SYMPTOMS. PATIENT VERBALIZES UNDERSTANDING TO RETURN TO ED FOR NEW OR WORSENING SYMPTOMS OR IF FOLLOW UP WITH PCP CANNOT BE OBTAINED. PATIENT FEELS COMFORTABLE GOING HOME AT THIS TIME. ALL QUESTIONS ADDRESSED AT TIME OF DISCHARGE. Time of 1ST Reevaluation: 13:43 Reevaluation 1ST: Improved Patient Education/Counseling: Diagnosis, Treatment, Need For Follow Up Family Education/Counseling: Diagnosis, Treatment, Need For Follow Up Medical Screening: No EMC Exist At This Time SEPSIS Sepsis Screen Date sepsis recognized/suspect: May 12, 2025 Time Sepsis recognized/suspect: 1300 Recent Procedure: No On Antibiotic Therapy: No Respiratory Rate >20: No Heart Rate >90: No Temp<36 C (96.8 F) or >38.3 C: No SBP <90 or MAP <65 mmHG: No New Acute Mental Status Change: No Is the patient on CPAP, BIPAP,: No Vital Signs Date Time Temp Pulse Resp B/P (MAP) Pulse Ox O2 Delivery O2 Flow Rate FiO2 05/12/25 13:33 85 18 97 Room Air 05/12/25 13:33 98.2 85 18 136/76 (96) 97 98.2 05/12/25 12:58 98.2 85 18 136/76 97 98.2 Departure 1 Departure Time of Disposition: 13:43 Impression: Primary Impression: Allergic contact dermatitis Qualified Codes: L23.9 - Allergic contact dermatitis, unspecified cause Additional Impression: Acute conjunctivitis of both eyes Qualified Codes: H10.33 - Unspecified acute conjunctivitis, bilateral Disposition: 01 HOME / SELF CARE / HOMELESS Condition: Stable Additional Instructions: FOLLOW-UP WITH PCP IN 1 TO 2 DAYS. TAKE MEDICATIONS PRESCRIBED. RETURN TO ED FOR ANY NEW OR WORSENING SYMPTOMS. e-Prescriptions Triamcinolone Acetonide (Triamcinolone Acetonide) 0.025 % Cre 1 APPLIC TOP BID, #30 GRAMS Prov: NADIYA PRICE 05/12/25 Tobramycin Sulfate (Tobrex) [address] 2 DROP OP QID, #5 ML Prov: NADIYA PRICE 05/12/25 Discharged With: Self, Relative Critical Care Note Critical Care Time?: No Stability Stability form required: No I personally scribed for NADIYA PRICE ([email or web address]) on 05/12/25 at 13:21. Electronically submitted by William Montenegro ([email or web address]). NADIYA PRICE May 12, 2025 13:21
[2025-05-12] MEDS ORDERED: TRIA0.02 TOP (13:22)
[2025-05-12] MEDS ORDERED: TOB03OS OP (13:22)
[2025-05-12 13:33] VITALS: BP 136/76; PULSE 85; RESP 18; TEMP 98.2; O2SAT 97
== END 2025-05-12 13:55 | disposition home or self-care (01) ==
LOC: ER 12:56
DX: L23.9 Allergic contact dermatitis, unspecified cause (principal); H10.33 Unspecified acute conjunctivitis, bilateral; E11.9 Type 2 diabetes mellitus without complications; Z79.84 Long term (current) use of oral hypoglycemic drugs; Z79.899 Other long term (current) drug therapy